=== PATIENT | female | born 1955 | race Caucasian/White ===

== ENCOUNTER → 2017-12-13 15:43 | Outpatient (CLI) | payer BC, SELFPAY | PROVIDERS: Visit Provider Otolaryngology | DX: J32.9 Chronic sinusitis, unspecified (principal) | CPT/HCPCS: 87070; 87077; 87186; 87205 ==

== ENCOUNTER 2018-05-19 15:00 | Outpatient (RCR) | payer BC, SELFPAY | END 2018-05-30 23:59 | LOC: NS 15:00 | PROVIDERS: PCP Family Medicine; Visit Provider Orthopaedic Surgery | DX: E66.9 Obesity, unspecified (principal); Z68.34 Body mass index [BMI] 34.0-34.9, adult; Z71.3 Dietary counseling and surveillance | CPT/HCPCS: 97802; 97803 ==

== ENCOUNTER 2018-06-02 14:25 | Outpatient (RCR) | payer BC, SELFPAY | END 2018-06-02 23:59 | LOC: NS 14:25 | PROVIDERS: PCP Family Medicine; Visit Provider Orthopaedic Surgery | DX: E66.9 Obesity, unspecified (principal); Z68.34 Body mass index [BMI] 34.0-34.9, adult; Z71.3 Dietary counseling and surveillance | CPT/HCPCS: 97803 ==

== ENCOUNTER → 2018-11-06 15:41 | Outpatient (CLI) | payer MEDICARE, SELFPAY | PROVIDERS: Family Provider Family Medicine; PCP Family Medicine; Referring Provider Otolaryngology; Visit Provider Otolaryngology | DX: J32.9 Chronic sinusitis, unspecified (principal) | CPT/HCPCS: 87070; 87077; 87186; 87205 ==

== ENCOUNTER → 2021-02-22 14:49 | Outpatient (CLI) | payer MEDICARE, OTHER, SELFPAY | PROVIDERS: PCP Family Medicine; Referring Provider Otolaryngology; Visit Provider Otolaryngology | DX: J32.8 Other chronic sinusitis (principal) | CPT/HCPCS: 87070; 87077; 87186; 87205 ==

== ENCOUNTER → 2021-05-01 | Outpatient (CLI) | payer MEDICARE, OTHER, SELFPAY | END | disposition home or self-care (01) | LOC: LABSPEC 15:33 | PROVIDERS: PCP Family Medicine; Visit Provider Otolaryngology | DX: J32.8 Other chronic sinusitis (principal) | CPT/HCPCS: 87070; 87077; 87186; 87205 ==

== ENCOUNTER 2023-12-02 10:22 | Outpatient (CLI) | payer MEDICARE, OTHER, SELFPAY ==
[2023-12-02 13:37] LABS: Ferritin 41 ng/mL (8-252); Iron 35 ug/dL (50-170)
== END 2023-12-02 23:59 | disposition home or self-care (01) ==
PROVIDERS: Referring Provider Internal Medicine Pulmonary Disease; Visit Provider Internal Medicine Pulmonary Disease
DX: G25.81 Restless legs syndrome (principal)
CPT/HCPCS: 36415; 82728; 83540

== ENCOUNTER → 2024-03-30 | Outpatient (CLI) | payer MEDICARE, OTHER, SELFPAY ==
[2024-03-30 15:08] LABS: Absolute Lymphocyte Count 0.82 X10^3/uL (0.83-4.51); Absolute Neutrophil Count 12.7 X10^3/uL (2.0-7.7); Basophil# 0.03 X10^3/uL; Basophil% 0.2 % (0-1); Eosinophil# 0.05 X10^3/uL; Eosinophils% 0.3 % (0-5); Hematocrit 28.7 % (37-47); Hemoglobin 8.9 g/dL (12.0-15.0); Lymphocyte # 0.82 X10^3/ul (0.83-4.51); Lymphocyte % 5.6 % (19-41); Mean Platelet Vol. 9.8 fl (6.2-12.0); Monocyte# 1.03 X10^3/uL; NRBC Flagged by Analyzer 0 % (0-5); Neutrophil # 12.72 X10^3/uL (2.7-7.7); Neutrophil % 86.1 % (47-70); Platelet Count 244 K/mm3 (150-450); RBC Distribution Width CV 16.5 % (11.6-14.6); RBC Distribution Width SD 59.7 fl (35.1-43.9); Red Blood Count 2.87 M/mm3 (4.2-5.4); White Blood Count 14.8 K/mm3 (4.4-11.0)
[2024-03-30 15:54] LABS: Hepatitis B Surface Antibody Non-Reactive
[2024-03-30 16:06] LABS: ALB/GLOB Ratio 1.2 RATIO (0.9-2.4); AST(SGOT) 20 U/L (15-37); Alanine Aminotransfer ALT/SGPT 24 U/L (13-56); Albumin, Serum 3.5 g/dL (3.2-5.0); Alkaline Phosphatase 56 U/L (45-117); Anion Gap 9 (5-15); BUN 23 mg/dL (7-18); BUN/Creat Ratio 18.4 RATIO (10-20); Calcium,Total 9.4 mg/dL (8.5-10.1); Chloride 98 mmol/L (98-107); Creatinine, Serum 1.25 mg/dL (0.55-1.02); EST Glomerular Filtration Rate 45 mL/min (>60); Est Glom Filt Rate - Afr Amer 55 mL/min (>60); Globulin 2.9 g/dL (2.2-4.2); Glucose 144 mg/dL (74-106); Protein, Total 6.4 g/dL (6.4-8.2); Sodium Level 134 mmol/L (136-145); T4 Free Direct 1.14 ng/dL (0.76-1.46)
[2024-04-01 15:09] LABS: Anti-Nuclear Antibody Test Negative (.); Cytoplasmic Ab (C-ANCA) <1:20 titer (Neg:<1:20); HEPATITIS B SURFACE AG Negative (Negative); Hep C Antibodies Non Reactive (Non Reactive); Hepatitis A AB, Total Negative (Negative); Hepatitis A IgM Antibody Negative (Negative); Hepatitis B Core AB IgM Negative (Negative); PROEL- A/G Ratio 1.5 (0.7-1.7); PROEL- Albumin 3.5 g/dL (2.9-4.4); PROEL- Alpha-1 Globulin 0.2 g/dL (0.0-0.4); PROEL- Alpha-2 Globulin 0.8 g/dL (0.4-1.0); PROEL- Beta Globulin 0.8 g/dL (0.7-1.3); PROEL- Gamma Globulin 0.4 g/dL (0.4-1.8); PROEL- Globulin, Total 2.3 g/dL (2.2-3.9); PROEL- TOTAL PROTEIN 5.8 g/dL (6.0-8.5); PROEL-M-Spike Not Observed g/dL (Not Observed); Perinuclear Ab (P-ANCA) <1:20 titer (Neg:<1:20)
== END | disposition home or self-care (01) ==
PROVIDERS: Referring Provider Physician Assistant Medical; Visit Provider Physician Assistant Medical
DX: M31.0 Hypersensitivity angiitis (principal)
CPT/HCPCS: 36415; 80053; 80074; 84165; 84439; 84443; 85025; 86038; 86256; 86706; 86708

== ENCOUNTER → 2024-08-06 | Outpatient (CLI) | payer MEDICARE, OTHER, SELFPAY ==
--- NOTE | 2024-08-06 14:53 | RAD_ITS ---
PROCEDURE: CHEST PA AND LATERAL REASON FOR EXAM: Dyspnea. TECHNIQUE: Frontal and lateral views of the chest. COMPARISON: None. FINDINGS: The heart size is normal. The mediastinal contour is unremarkable. The lungs are clear. The bones are unremarkable. RAD/Chest PA and Lateral IMPRESSION: NEGATIVE CHEST Reading Location: [id number]
[2024-08-12 05:06] LABS: Immunoglobulin A 86 mg/dL (87-352); Immunoglobulin E 5 IU/mL (6-495); Immunoglobulin G 600 mg/dL (586-1602); Immunoglobulin M 38 mg/dL (26-217); QNTFERON TB Mitogen Value 1.78 IU/mL (.); QNTFERON TB Nil Value 0 IU/mL (.); QNTFERON TB1+ Ag Value 0 IU/mL (.); QNTFERON TB2+ Ag Value 0 IU/mL (.); QNTIFERON TB Positive Criteria Negative (Negative)
== END | disposition home or self-care (01) ==
LOC: MTLAB 14:52
PROVIDERS: Referring Provider Internal Medicine Pulmonary Disease; Visit Provider Internal Medicine Pulmonary Disease
DX: U07.1 COVID-19 (principal); J44.9 Chronic obstructive pulmonary disease, unspecified; R06.00 Dyspnea, unspecified
CPT/HCPCS: 36415; 71046; 82784; 82785; 86480

== ENCOUNTER → 2024-08-28 | Outpatient (CLI) | payer MEDICARE, OTHER, SELFPAY ==
[2024-08-28 12:55] LABS: Anion Gap 15 (5-15); BUN 36 mg/dL (4-19); Carbon Dioxide 25.1 mmol/L (22.0-29.0); Chloride 96 mmol/L (96-108); Creatinine, Serum 1.91 mg/dL (0.70-1.20); EST Glomerular Filtration Rate 28 (>60); Glucose 300 mg/dL (70-99); Potassium 4.2 mmol/L (3.3-5.1); Pro- Brain NATRIURETIC PEPTIDE 811 pg/mL (<=900); Sodium Level 135 mmol/L (133-145)
== END | disposition home or self-care (01) ==
LOC: LABSPEC 11:46
DX: I13.0 Hypertensive heart and chronic kidney disease with heart failure and stage 1 through stage 4 chronic kidney disease, or unspecified chronic kidney disease (principal); I50.33 Acute on chronic diastolic (congestive) heart failure
CPT/HCPCS: 80048; 83880

== ENCOUNTER → 2024-09-22 | Outpatient (CLI) | payer MEDICARE, OTHER, SELFPAY ==
[2024-09-22 16:21] LABS: Absolute Lymphocyte Count 1.68 X10^3/uL (0.83-4.51); Absolute Neutrophil Count 8.1 X10^3/uL (2.0-7.7); Basophil# 0.02 X10^3/uL; Basophil% 0.2 % (0-1); Eosinophil# 0.18 X10^3/uL; Eosinophils% 1.6 % (0-5); Hematocrit 21.9 % (37-47); Hemoglobin 7.1 g/dL (12.0-15.0); Lymphocyte # 1.68 X10^3/ul (0.83-4.51); Lymphocyte % 14.7 % (19-41); Mean Corp Hgb Conc 32.4 g/dL (32-36); Mean Corpuscular Hgb 29.8 pg (27.0-32.0); Mean Platelet Vol. 9.8 fl (6.2-12.0); Monocyte# 1.28 X10^3/uL; Monocyte% 11.2 % (0-10); NRBC Flagged by Analyzer 0.2 % (0-5); Neutrophil # 8.13 X10^3/uL (2.7-7.7); Platelet Count 272 K/mm3 (150-450); RBC Distribution Width CV 18.5 % (11.6-14.6); RBC Distribution Width SD 60.9 fl (35.1-43.9); Red Blood Count 2.38 M/mm3 (4.2-5.4); White Blood Count 11.4 K/mm3 (4.4-11.0)
[2024-09-23 00:14] LABS: ALB/GLOB Ratio 1.3 RATIO (0.9-2.4); AST(SGOT) 18 U/L (<=31); Alanine Aminotransfer ALT/SGPT 14 U/L (<=34); Albumin, Serum 3.8 g/dL (3.4-4.8); Alkaline Phosphatase 106 U/L (35-104); Anion Gap 15 (5-15); BUN 28 mg/dL (4-19); BUN/Creat Ratio 11.8 RATIO (10-20); Calcium,Total 9.5 mg/dL (7.6-11.0); Carbon Dioxide 21.5 mmol/L (21.0-32.0); Chloride 96 mmol/L (98-108); EST Glomerular Filtration Rate 21 (>60); Globulin 2.8 g/dL (2.2-4.2); Glucose 154 mg/dL (70-99); Potassium 3.8 mmol/L (3.3-5.1); Protein, Total 6.6 g/dL (5.9-8.4); Sodium Level 133 mmol/L (133-145); Total Bilirubin 0.18 mg/dL (0.00-1.30)
== END | disposition home or self-care (01) ==
LOC: LABSPEC 15:01
PROVIDERS: Referring Provider Internal Medicine Infectious Disease; Visit Provider Internal Medicine Infectious Disease
DX: J18.9 Pneumonia, unspecified organism (principal); B96.1 Klebsiella pneumoniae [K. pneumoniae] as the cause of diseases classified elsewhere
CPT/HCPCS: 80053; 85025; 86140

== ENCOUNTER 2024-11-06 13:00 | Outpatient (RCR) | payer MEDICARE, OTHER, SELFPAY ==
--- NOTE | 2024-09-09 10:59 | HP.PTEVAL_ITS ---
Patient's Visit Information Visit Information Visit Information: RONI ACUNA is a 68 year old F referred to Physical Therapy by RAFFAELE BERRIOS with a diagnosis of weakness. Date of Evaluation: 09/09/24 Physical Therapist: Sukumar Soto, DPT, OCS, CSCS Visit Plan Frequency: 3x /Week Duration: 4-6 Weeks Plan: 3x/week for 4-6 weeks for IE HEP: use wh walker 100% of time, reviewed safety, walk with walker with hubby 5x/day 300 feet or so. Please work on LE, postural and general strength in PT to HEP when safe, include steps and sit to stand. Include balance dynamically with weight shifts and vestib challenges. Subjective Subjective: Spent most of May on a vent at for 11 days and then NH for therapy then back to hospital for 10 days. She had pneumonia, Also has CHF. Has kidney failure. Has been home for 2 month or so now. Has been doing very little at home, doctor appointment and relaxing and recovering. Took too long to get i nto PT. Has sinus infection that might need cleaned out. Currently balance is not good adn hard time gtting around with weakness. Uses cane all of the time. Has wh walker but does not like it. Has rollator also but brake is broken. Has WC. One fall 3 weeks ago while bending over. Uses WC if she has to go long way. Has no steps but two to get in , has railing and does not use basement. Sleep in bed in condo and sleeps OK, up some nights with anxiousness. Lives with hubby, not employed. Basic ADLs; dresses self (hubby may help with compression garment. Bathroom self. Shower with hanging around at walk in shower and has shower sat. Hobbies: loves quilting and hang with friends. has not been able to make that monthly meeeting. Gnosticist regularly but not lately due to weeakness and imbalance. Dizzy is intermittent mostly with standing up. Sleeps on wedge. Did not need cane prior to this sickness. Pain neck: Pain Intensity (Out of 10): 0 Pain Intensity Range: 0 Comment: stiff, has rods in neck. Objective Objective: 96% spO2 63 HR at rest slow walking with cane and husbands ar m back to PT intermittent R foot drag and slow and very fatigued relieved to sit once to the room. CGA to Min A with cane. Ambulates with wh walkr mod I then 200 feet with some R foot drag but faster and safer, recommendd wh walkr 100% at home. transfer chair needing UE I, Bd trasnfer HOB elevated I. LE AROM WFL and flexibility WFL. Sensation LE diminished to gross light touch in feet and ankles, some neuropathy eevident. reflexes 2/3 patella and achilles B. strength hips and corer 3/5, knes 4/5, ankles 4-/5. Up steps with rail weak and needing UE due to not strong enough with either leg alone to push up steps. UE AROM to 100 elevation, passive is better, L weaker than R. Balance/Special Test Scores Functional Gait Assessment Score: 12 % Disability: 60.0000 CATSIB Score (Max score 120 seconds): 72 Lower Extremity Functional Score: 11 TUG Test Time Seconds: 19 30 Second Chair Rise Test Seconds: 10 Goals Goal 1:: I appropriate home based strngth posture, LE and balance ex to limit future problems. Goal Time Frame: 4-6 Weeks Goal 2:: 30 SSTS 15 score to improve mobility Goal Time Frame: 4-6 Weeks Goal 3:: up and down steps with one railing I either leg Goal Time Frame: 4-6 Weeks Goal 4:: Pt feel 75% better and able to go out with friends safely Goal Time Frame: 4-6 Weeks Goal 5:: Walk with cane or less in community safely with 23 FGA score. Goal Time Frame: 4-6 Weeks Rehabilitation Potential Physical Therapy Diagnosis: weakness and neeuropathy effecting mobility adn activitiy at home Rehabilitation Potential: Fair Anticipated Interventions Patient/Client Instruction: Educate patient on: Condition and Plan of Care For the Purpose of:: To increase ROM, To improve nutrient delivery to tissue, To improve muscle performance and motor function, To increase tolerance to activity/condition/position, To improve ability of physical actions for home/community/work/leisure, To improve gait and locomotor functions and To improve safety Therapeutic Exercise to Include: Strength training, Balance training and Postural training For the Purpose of:: To improve nutrient delivery to tissue, To improve muscle performance and motor function, To increase tolerance to activity/condition/position, To improve gait and locomotor functions and To improve safety Text: Thank you for the opportunity to evaluate your patient. For Medicare and Medicare HMO plans, please review the plan of care and approve it. It will need to be FAXED BACK to us at [phone] for Medicare purposes. For Medicare only, by signing this I certify the plan of care. Please let me know if there are questions or concerns regarding this plan of care. Physician Signature: Date:
--- NOTE | 2025-01-04 15:19 | HP.PTDCNRP_ITS ---
Patient Information Patient Information: RONI ACUNA was seen in my office for initial evaluation on 09/09/24. The following Plan of Care was established for this patient: POC Established Initial Frequency: 3x /Week Initial Duration: 4-6 Weeks Anticipated Interventions Patient/Client Instruction: Educate patient on: Condition and Plan of Care For the Purpose of:: To increase ROM, To improve nutrient delivery to tissue, To improve muscle performance and motor function, To increase tolerance to activity/condition/position, To improve ability of physical actions for h ome/community/work/leisure, To improve gait and locomotor functions and To improve safety Therapeutic Exercise to Include: Strength training, Balance training and Postural training For the Purpose of:: To improve nutrient delivery to tissue, To improve muscle performance and motor function, To increase tolerance to activity/condition/position, To improve gait and locomotor functions and To improve safety Last Seen Last Seen: This patient was last seen in our office 11/06/24. Pertinent comments regarding their Physical therapy will appear below: Pt seen for POC and was 50% better. Plan was to f/u in a couple weeks to ensure progress but did not schedule or attend. At this point, it has been almost two months and I will discontinue from my care. At this point I will be discontinuing this patient from physical therapy. I would be happy to see this patient again in the future if found appropriate by the physician. Thank you! Sukumar Soto, DPT, OCS, CSCS Balance/Gait/Functional tests Balance/Special Test Scores Functional Gait Assessment Score: 21 % Disability: 30.0000 CATSIB Score (Max score 120 seconds): 72 Lower Extremity Functional Score: 35 TUG Test Time Seconds: 19 Tug Test: <20 sec.=mostly independent 30 Second Chair Rise Test Seconds: 13
== END 2024-11-06 19:00 | disposition home or self-care (01) ==
LOC: PT 13:00
DX: R53.1 Weakness (principal)
CPT/HCPCS: 97110; 97163; 97164; 97530

== ENCOUNTER 2025-01-25 08:54 | Inpatient (IN) | payer MEDICARE, OTHER, SELFPAY ==
[2025-01-25] VITALS (13 sets, daily range): BP systolic 132–156; BP diastolic 32–68; PULSE 55–76; RESP 14–20; TEMP 36.5–37.2; O2SAT 95–100; BMI 34.2; BMI 34.4
--- NOTE | 2025-01-25 09:02 | CT_ITS ---
PROCEDURE: STROKE BRAIN/HEAD WITHOUT CONT 01/25/2025 REASON FOR EXAM: NEURO DEFICIT, ACUTE, STROKE SUSPECTED TECHNIQUE: STROKE BRAIN/HEAD WITHOUT CONT Coronal and Sagittal reconstruction series were provided. One or more dose reduction techniques were used (e.g., Automated exposure control, adjustment of the mA and/or kV according to patient size, use of iterative reconstruction technique. RADIATION DOSE SUMMARY: CTDlvol: 44.99 mGy DLP: 812.98 mGycm COMPARISON: None FINDINGS: Brain: Low density in the periventricular white matter suggests mild chronic small vessel ischemic changes. CSF Spaces: Mild generalized cerebral atrophy Sinuses/Mastoids: Bilateral maxillary sinusitis. Opacification of the ethmoid sinuses. Mucosal thickening of the sphenoid sinus. There is evidence of prior resection of the medial [place] of both maxillary sinuses. Partial opacification of the left frontal sinus Bones: Unremarkable CT/STROKE Brain/Head without Cont IMPRESSION: SINUS DISEASE. OTHERWISE UNREMARKABLE NONCONTRAST HEAD CT. Red Alert: Sinusitis. No acute findings. The critical information above was relayed directly by me by telephone to Reema Grider on 01/25/2025 at 9:15 am with readback verification. Reading Location: [facility]
--- NOTE | 2025-01-25 09:02 | EKG12_ITS ---
Test Reason : NEURO S/SX Blood Pressure : */* mmHG Vent. Rate : 57 BPM Atrial Rate : 57 BPM P-R Int : 174 ms QRS Dur : 74 ms QT Int : 422 ms P-R-T Axes : 51 -3 10 degrees QTcB Int : 410 ms Sinus bradycardia Minimal voltage criteria for LVH, may be normal variant ( R in aVL ) Inferior infarct , age undetermined Cannot rule out Anterior infarct , age undetermined Abnormal ECG Confirmed by CHATO SAUCEDO, KATHERINE ([id number]), editor & co founder JENNIFER PATEL ([id number]) on 01/26/2025 1:00:26 PM Referred By: Confirmed By: KATHERINE REIS MD
--- NOTE | 2025-01-25 09:03 | RAD_ITS ---
PROCEDURE: CHEST 1 VIEW 01/25/2025 REASON FOR EXAM: NEURO DEFICIT, ACUTE, STROKE SUSPECTED TECHNIQUE: Frontal view of the chest. COMPARISON: 08/06/2024 FINDINGS: Hardware: EKG leads overlie the chest Heart: The heart size is normal. Lungs: Chronic interstitial changes in both lung mullen without a superimposed acute pulmonary process. Bones: Degenerative bony changes, evidence of previous bilateral rotator cuff repair Other: Peripheral calcifications in the thoracic aorta without aneurysm. RAD/Chest 1 View IMPRESSION: No acute pulmonary process, no interval change Reading Location: [id number]
--- NOTE | 2025-01-25 09:20 | EDS_ITS ---
HPI History of Present Illness Chief Complaint: Stroke Alert Informant: patient, family and EMS Narrative Narrative: Patient is a 69-year-old female with history of hypertension, diabetes mellitus (insulin-dependent), fibromyalgia and CKD (is under evaluation for possibly starting hemodialysis) presenting for episode of slurred speech. Patient states she woke up at 5 AM and her woke up around 7 AM. At that time she seemed normal. Around 730 she was eating breakfast when she started to have slurred speech. She was very weak. EMS was called. She had slurred speech for them and was complained of intermittent headache and lightheadedness. Her blood sugar for squad was 214. She just started a new insulin and a new Dexcom. Her states her blood sugars never been this high. She did have a fall 2 weeks ago but has been recovering from that. She was recently placed on a course of Lasix for leg swelling and has had increased urine output associated with that. No report of fever or GI symptoms. Patient currently denies feeling lightheaded or having a headache. Per EMS upon arrival her has improved significantly compared to how it was prior to arrival. Patient tells me her hands hurt and that is her only complaint. [facility] Medical History Diabetes Home Medications ?Medication ?Instructions ?Recorded ?Last Taken ?Type amlodipine 10 mg tablet 10 mg PO DAILY 05/28/1412/30 History pramipexole 0.25 mg tablet 0.25 mg PO BID 05/28/14 History prednisone 5 mg tablet 5 mg PO DAILY 05/28/1401/25 History pregabalin 100 mg capsule (Lyrica) 100 mg PO QHS 05/2801/24/25 History aspirin 81 mg chewable tablet 81 mg PO DAILY@0800 05/0201/25/25 History calcium 500 mg-vitamin D3 1,000 500 mg PO DAILY 01/25/25 History unit-vitamin K 40 mcg chewable tablet (Citracal-D3 Soft Chew) ergocalciferol (vitamin D2) 1,250 5,000 unit PO BID 01/25/25 History mcg (50,000 unit) capsule (Vitamin
--- NOTE | 2025-01-25 09:20 | EX.ED.DYSGE1 ---
HPI History of Present Illness Chief Complaint: Stroke Alert Informant: patient, family and EMS Narrative Narrative: Patient is a 69-year-old female with history of hypertension, diabetes mellitus (insulin-dependent), fibromyalgia and CKD (is under evaluation for possibly starting hemodialysis) presenting for episode of slurred speech. Patient states she woke up at 5 AM and her woke up around 7 AM. At that time she seemed normal. Around 730 she was eating breakfast when she started to have slurred speech. She was very weak. EMS was called. She had slurred speech for them and was complained of intermittent headache and lightheadedness. Her blood sugar for squad was 214. She just started a new insulin and a new Dexcom. Her states her blood sugars never been this high. She did have a fall 2 weeks ago but has been recovering from that. She was recently placed on a course of Lasix for leg swelling and has had increased urine output associated with that. No report of fever or GI symptoms. Patient currently denies feeling lightheaded or having a headache. Per EMS upon arrival her has improved significantly compared to how it was prior to arrival. Patient tells me her hands hurt and that is her only complaint. [facility] Medical History Diabetes Home Medications ?Medication ?Instructions ?Recorded ?Last Taken ?Type amlodipine 10 mg tablet 10 mg PO DAILY 05/28/14 01/24/25 History pramipexole 0.25 mg tablet 0.25 mg PO BID 05/28/14 01/24/25 History prednisone 5 mg tablet 5 mg PO DAILY 05/28/14 01/25/25 History pregabalin 100 mg capsule (Lyrica) 100 mg PO QHS 05/28/14 01/24/25 History aspirin 81 mg chewable tablet 81 mg PO DAILY@0800 05/29/14 01/25/25 History calcium 500 mg-vitamin D3 1,000 500 mg PO DAILY 05/29/14 01/25/25 History unit-vitamin K 40 mcg chewable tablet (Citracal-D3 Soft Chew) ergocalciferol (vitamin D2) 1,250 5,000 unit PO BID 05/29/14 01/25/25 History mcg (50,000 unit) capsule (Vitamin D2) ferrous gluconate 324 mg (37.5 mg 324 mg PO BID 05/29/14 01/25/25 History iron) tablet omega-3 fatty acids-fish oil 340 1 ea PO TID 05/29/14 Unknown History mg-1,000 mg capsule (Fish Oil) allopurinol 100 mg tablet 200 mg PO DAILY 01/25/25 01/24/25 History ascorbic acid (vitamin C) 1,000 mg 1 g PO DAILY 01/25/25 01/25/25 History capsule biotin 10,000 mcg capsule 10,000 mcg PO DAILY 01/25/25 01/25/25 History brimonidine 0.2 % eye drops 1 drp EACH EYE BID 01/25/25 01/25/25 History carvedilol 12.5 mg tablet 12.5 mg PO Q12H 01/25/25 01/25/25 History cetirizine 10 mg tablet 10 mg PO DAILY 01/25/25 01/25/25 History cyanocobalamin (vitamin B-12) 1,000 mcg PO DAILY 01/25/25 01/25/25 History 1,000 mcg capsule dapagliflozin propanediol 10 mg 10 mg PO DAILY 01/25/25 01/25/25 History tablet (Farxiga) dicyclomine 20 mg tablet 20 mg PO Q6H 01/25/25 01/25/25 History ezetimibe 10 mg tablet 10 mg PO DAILY 01/25/25 01/25/25 History folic acid 1 mg tablet 1 mg PO DAILY 01/25/25 01/25/25 History furosemide 20 mg tablet 20 mg PO BID 01/25/25 01/25/25 History hydralazine 100 mg tablet 100 mg PO TID 01/25/25 01/25/25 History hydroxychloroquine 200 mg tablet 200 mg PO BID 01/25/25 01/25/25 History insulin degludec 100 unit/mL (3 15 unit subcut QHS 01/25/25 01/24/25 History mL) subcutaneous pen (Tresiba FlexTouch U-100 insulin) isosorbide mononitrate 120 mg 120 mg PO DAILY 01/25/25 01/25/25 History tablet,extended release 24 hr latanoprost 0.005 % eye drops 1 drp ophthalmic (eye) QHS 01/25/25 01/24/25 History magnesium 250 mg tablet 250 mg PO DAILY 01/25/25 01/25/25 History multivitamin (Daily Value tablet) 1 tab PO DAILY 01/25/25 01/25/25 History omega-3 acid ethyl esters 1 gram 2 cap PO BID 01/25/25 01/25/25 History capsule pantoprazole 40 mg tablet,delayed 40 mg PO BID 01/25/25 01/25/25 History release potassium 99 mg tablet 99 mg PO DAILY 01/25/25 01/25/25 History prednisone 2.5 mg tablet 2.5 mg PO DAILY 01/25/25 01/25/25 History semaglutide 0.25 mg or 0.5 mg (2 0.25 mg subcut QWEEK 01/25/25 01/24/25 History mg/3 mL) subcutaneous pen injector (Ozempic) valsartan 160 mg tablet 320 mg PO DAILY 01/25/25 01/24/25 History Allergy/AdvReac Type Severity Reaction Status Date / Time Penicillins Allergy Hives Verified 01/25/25 09:00 Social History Smoking Status: Never smoker ROS ROS ED Constitutional Constitutional ED: Denies chills, fever(s) or sweats Eyes Eyes: Denies blurry vision or change in vision Cardiovascular Cardiovascular: Denies chest pain Respiratory/Chest Respiratory/Chest: Denies cough or dyspnea Gastrointestinal Gastrointestinal: Denies nausea or vomiting Musculoskeletal Musculoskeletal: Reports myalgias; Denies arthralgias Integumentary Denies rash Neurologic Neurologic: Reports headache(s); Denies paresthesias Hematologic/Lymphatic Hematologic/Lymphatic: Denies easy bleeding or easy bruising EXAM Physical Exam Const Vital Signs: 01/25/25 09:01 01/25/25 09:03 01/25/25 09:03 Temperature 98.7 F 98.9 F Temperature Source Temporal Oral Pulse Rate 55 L 60 Respiratory Rate 16 14 Blood Pressure 136/52 H 147/53 H Blood Pressure Mean 80 84 Pulse Ox 97 96 Oxygen Delivery Method Room Air Room Air Room Air 01/25/25 09:30 01/25/25 10:00 01/25/25 10:30 Temperature Temperature Source Pulse Rate 61 68 62 Respiratory Rate 14 18 18 Blood Pressure 141/59 H 156/68 H 141/52 H Blood Pressure Mean 86 97 81 Pulse Ox 100 100 100 Oxygen Delivery Method Room Air Room Air Room Air 01/25/25 11:00 01/25/25 11:12 Temperature 98.6 F Temperature Source Pulse Rate 64 64 Respiratory Rate 20 H 20 H Blood Pressure 155/65 H 155/65 H Blood Pressure Mean 95 95 Pulse Ox 100 100 Oxygen Delivery Method Room Air Positive well nourished and well developed General Appearance ED: well developed and NAD HEENT Reports moist mucous membranes Eyes PERRL and EOMs intact bilaterally Eyes Narrative: No visual field cut Neck supple and no JVD Chest Wall inspection of chest normal and palpation of chest normal Resp normal respiratory effort and clear to auscultation bilaterally Cardio regular rate, regular rhythm and no murmurs Cardio Narrative: 2+ radial and DP pulses present GI normal to inspection, nondistended, normoactive bowel sounds and non-tender Extremity normal to inspection General Extremety ED: Negative for edema General Extremity: Negative for edema Neuro oriented x3, CN's II-XII intact bilaterally and no sensory deficits noted Neuro Narrative: Generally weak but answers questions appropriately. Mildly somnolent but with verbal stimuli awakes and answers questions appropriately. NIH equals 0. Speech is weak but is not having dysarthria or expressive aphasia. Sensorium / Orientation: alert Sensory Exam: No sensory level loss detected Motor Exam: strength 5/5 throughout and general weakness Psych mental status grossly normal Skin no rashes or lesions noted and no wounds Skin Narrative: Healing area of ecchymosis over the left anterior neck. No hematoma appreciated. MDM MDM MDM Narrative Medical decision making narrative: Patient arrives to the emergency room as a prehospital stroke alert. Upon arrival patient is weak but does not have any focal neurologic deficits. Stroke alert was canceled but CT of the brain is obtained she did report headache with an acute change in mental status and concern for acute intracranial hemorrhage such as subarachnoid hemorrhage or subdural (she did have a fall about 2 weeks ago per family report). Differential includes metabolic encephalopathy, medication reaction, TIA, urinary tract infection, pneumonia, arrhythmia, ACS and electrolyte derangement. 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 At that time patient had anemia the hemoglobin of 9.3. Normal white blood cell count of 8.2. Renal function panel showed BUN of 54 and a creatinine of 3.10 with a sodium of 128 and chloride of 89 as well as a phosphorus of 5.1. Fasting glucose 121. Magnesium 2.3. CT of the brain does not show any acute intracranial process. There is sinus disease present. CBC shows a leukocytosis of 11.1. Hemoglobin 9.4. She does have a left shift with 1% immature granulocytes. troponin mildly elevated at 53 high-sensitivity BMP shows sodium of 130, elevated gap of 16, BUN of 65 and creatinine 3.65. Patient's kidney function is worsening. She has no progressive neurologic symptoms in the emergency room. Concerned this is more of an underlying metabolic process on top of worsening of chronic kidney disease. Patient started on IV fluids at 150 cc an hour. Will contact hospitalist for admission. Urinalysis is still pending. Urinalysis consistent with urinary tract infection with positive nitrates, 500 leukocyte esterase, greater than 100 white blood cells and 1+ bacteria. Culture sent. This was obtained via straight cath. Is started on Rocephin in the emergency room. Case discussed with hospitalist, Dr. Silvestre for admission. Patient and family agreeable with plan of care. History & Record Review Additional record(s) reviewed:: Prior outpatient record Lab Data Attestation: I reviewed the patient's lab results. Labs: Laboratory Results - last 24 hr 01/25/25 01/25/25 01/25/25 08:40 10:14 10:22 WBC 11.1 H RBC 3.08 L Hgb 9.4 L Hct 29.0 L MCV 94.2 MCH 30.5 MCHC 32.4 RDW Std Deviation 51.1 H RDW Coeff of Vilma 14.8 H Plt Count 224 MPV 9.4 Immature Gran % (Auto) 1.000 H Neut % (Auto) 80.3 H Lymph % (Auto) 7.7 L [place] % (Auto) 7.7 Eos % (Auto) 2.8 Baso % (Auto) 0.5 Absolute Neuts (auto) 8.9 H Absolute Lymphs (auto) 0.85 Nucleated RBC % 0 PT Cancelled 13.3 INR Cancelled 1.0 APTT Cancelled 25.7 Sodium 130 L Potassium 4.2 Chloride 88 L Carbon Dioxide 25.6 Anion Gap 16 H BUN 65 H Creatinine 3.65 H Estim Creat Clear Calc 15.26 L Est GFR (MDRD) Non-Af 13 L BUN/Creatinine Ratio 17.7 Glucose 208 H Calcium 11.0 Troponin T High Sens 53 H Urine Color Yellow Urine Clarity Cloudy Urine pH 6.0 Ur Specific [place] 1.015 Urine Protein 30 H Urine Glucose (UA) 250 H Urine Ketones Negative Urine Occult Blood 10 H Urine Nitrite Positive H Urine Bilirubin Negative Urine Urobilinogen Normal Ur Leukocyte Esterase 500 H Urine RBC 0 SEEN Urine WBC >100 SEEN Ur Squamous Epith Cells 0 SEEN Urine Bacteria 1+ Urine Mucus 0 SEEN Radiography Diagnostic Testing: Clinical Impression(s) from Imaging Studies Brain CT 01/25/25 09:02 IMPRESSION: SINUS DISEASE. OTHERWISE UNREMARKABLE NONCONTRAST HEAD CT. Red Alert: Sinusitis. No acute findings. The critical information above was relayed directly by me by telephone to Reema Dover on 01/25/2025 at 9:15 am with readback verification. Reading Location: [id number] Chest X-Ray 01/25/25 09:03 IMPRESSION: No acute pulmonary process, no interval change Reading Location: [id number] Rhythm Strip Rhythm Strip: Sinus Rhythm Rate: 57 Ectopy: None EKG Initial EKG: Attestation: I personally reviewed and interpreted this EKG as follows: Interpretation: Sinus Bradycardia Comments: Sinus bradycardia at a rate of 57 bpm Left axis deviation Minimal voltage criteria for LVH Normal ST segments Management Discussion w/another healthcare provider: Radiologist (CT of the brain does not show any acute intracranial process.) Discharge Plan Triage Chief Complaint: Stroke Alert ED Provider: Reema Dover Dx/Rx/DC Orders Clinical Impression: Acute UTI, Diabetes type 2, uncontrolled, Slurring of speech, Acute kidney injury superimposed on chronic kidney disease, Generalized weakness, Hyponatremia Prescriptions: No Action prednisone 5 MG tablet 5 mg PO DAILY Patient Comments: Rheumatoid arthritis Rx Instructions: TAKE WITH 2.5MG FOR TOTAL DAILY DOSE OF 7.5MG amlodipine 10 MG tablet 10 mg PO DAILY Patient Comments: Blood pressure pramipexole 0.25 MG tablet 0.25 mg PO BID Patient Comments: Restless legs pregabalin [Lyrica] 100 MG capsule 100 mg PO QHS Patient Comments: Neuropathy aspirin 81 MG tablet,chewable 81 mg PO DAILY@0800 Patient Comments: Heart health ergocalciferol (vitamin D2) [Vitamin D2] 50,000 UNIT capsule 5,000 unit PO BID Patient Comments: Supplement omega-3 fatty acids-fish oil [Fish Oil] 1 EACH capsule 1 ea PO TID Patient Comments: Heart health ferrous gluconate 325 MG tablet 324 mg PO BID Patient Comments: Iron supplement calcium-vitamin D3-vitamin K [Citracal-D3 Soft Chew] 1 EACH tablet,chewable 500 mg PO DAILY allopurinol 100 mg tablet 200 mg PO DAILY ascorbic acid (vitamin C) 1,000 mg capsule 1 g PO DAILY biotin 10,000 mcg capsule 10,000 mcg PO DAILY brimonidine 0.2 % drops 1 drp EACH EYE BID Rx Instructions: administer approximately 8 hours apart carvedilol 12.5 mg tablet 12.5 mg PO Q12H cetirizine 10 mg tablet 10 mg PO DAILY cyanocobalamin (vitamin B-12) 1,000 mcg capsule 1,000 mcg PO DAILY dicyclomine 20 mg tablet 20 mg PO Q6H ezetimibe 10 mg tablet 10 mg PO DAILY dapagliflozin propanediol [Farxiga] 10 mg tablet 10 mg PO DAILY isosorbide mononitrate 120 mg tablet extended release 24 hr 120 mg PO DAILY hydralazine 100 mg tablet 100 mg PO TID folic acid 1 mg tablet 1 mg PO DAILY latanoprost 0.005 % drops 1 drp ophthalmic (eye) QHS magnesium 250 mg tablet 250 mg PO DAILY multivitamin [Daily Value] Tablet 1 tab PO DAILY Ozempic 0.25 mg or 0.5 mg (2 mg/3 mL) pen injector 0.25 mg subcut QWEEK Rx Instructions: for 4 weeks potassium 99 mg tablet 99 mg PO DAILY prednisone 2.5 mg tablet 2.5 mg PO DAILY Rx Instructions: TAKE WITH 5MG FOR TOTAL DAILY DOSE OF 7.5MG pantoprazole 40 mg tablet,delayed release (DR/EC) 40 mg PO BID furosemide 20 mg tablet 20 mg PO BID hydroxychloroquine 200 mg tablet 200 mg PO BID valsartan 160 mg tablet 320 mg PO DAILY omega-3 acid ethyl esters 1 gram capsule 2 cap PO BID insulin degludec [Tresiba FlexTouch U-100] 100 unit/mL (3 mL) insulin pen 15 unit subcut QHS Primary Care Provider: JEFFY ROTHMAN Referrals: Care Physician,No Primary [Non-Staff] - Print Language: [place] Disposition Disposition: Acute Care Hospital [facility]
[2025-01-25 09:22] LABS: Hematocrit 29.0 % (37-47); Hemoglobin 9.4 g/dL (12.0-15.0); Immature Granulocytes Count 0.110 X10^3/uL (0.0-0.0); Mean Corp Hgb Conc 32.4 g/dL (32-36); Mean Corpuscular Volume 94.2 fL (81-99); Mean Platelet Vol. 9.4 fl (6.2-12.0); NRBC Flagged by Analyzer 0 % (0-5); Platelet Count 224 K/mm3 (150-450); RBC Distribution Width CV 14.8 % (11.6-14.6); RBC Distribution Width SD 51.1 fl (35.1-43.9); Red Blood Count 3.08 M/mm3 (4.2-5.4); White Blood Count 11.1 K/mm3 (4.4-11.0)
[2025-01-25 09:52] LABS: Anion Gap 16 (5-15); BUN 65 mg/dL (4-19); BUN/Creat Ratio 17.7 RATIO (10-20); Calcium,Total 11.0 mg/dL (7.6-11.0); Carbon Dioxide 25.6 mmol/L (21.0-32.0); Chloride 88 mmol/L (98-108); Estimated Creatinine Clearance 15.26 ml/min (50-250); Glucose 208 mg/dL (70-99); Potassium 4.2 mmol/L (3.3-5.1); Troponin T High Sensitivity 53 ng/L (<=14)
[2025-01-25] MEDS: 0.9% Normal Saline (1000mL) 1,000 ML 150 ML IV (10:27)
[2025-01-25 10:39] LABS: Mucous, Urine 0 SEEN /hpf (<or=2+); Red Blood Cells-Urine 0 SEEN /hpf (0-5); Squamous Epithelial Cells - UA 0 SEEN /hpf (5-10)
[2025-01-25 10:40] LABS: Prothrombin Time (Protime)PT. 13.3 SECONDS (11.7-14.9)
[2025-01-25 10:41] LABS: Partial Thromboplast Time 25.7 Seconds (24.1-36.2)
[2025-01-25 10:42] LABS: Color, Urine Yellow (Yellow); Glucose, Dipstick 250 mg/dl (Normal); Ketone-Dipstick Negative (Negative); Leukocyte Esterase-Dipstick 500 /ul (Negative); Nitrite-Dipstick Positive (Negative); Occult Blood-Urine 10 /ul (Negative); Protein-Dipstick 30 mg/dl (Negative); Specific Gravity, Urine 1.015 (1.002-1.030); Urine Bilirubin Dipstick Negative (Negative)
--- NOTE | 2025-01-25 10:50 | PCM.HP.STD ---
HPI - General General Date of Admission: 01/25/25 Date of Service: 01/25/25 Chief Complaint: slurred speech HPI Narrative RONI ACUNA, is a 69 F with a PMH as outlined who presents via the ED on 01/25/2025 with a complaint of slurred speech. Her last known well was around 7:30am on the day of admission when she was eating breakfast and started having slurrring of her speech. She also felt very weak and also complained of intermittednt headache and lightheadedness. She therefore called the EMS and was brought in to the ED. She denied any focal weakness, numbness or tingling, or any mouth droop. REview of systems is otherwise negative. Vitals in the ED were blood pressure of 141/52, pulse rate of 62 and respiratory rate of 18. Oxygen saturation was 100% on room air. CBC showed hemoglobin of 9.4 and WBC of 11.1 as well as platelets of 224. INR was 1. Chemistry showed sodium of 130 with potassium of 4.2 and bicarb of 25.6. Creatinine was 3.65. Urinalysis showed more than 100 WBC and elevated leukocyte esterase as well as positive nitrites and urine bacteria was 1+. CT of the brain showed no acute intracranial pathology. Stroke alert was called but was canceled when she arrived in the ED by the ED doctor as she felt it was more likely due to the UTI. She is being admitted to be managed for debility and weakness due to UTI as well as a stroke rule out. [facility]LY [facility] Medical History Diabetes Home Medications ?Medication ?Instructions ?Recorded ?Last Taken ?Type amlodipine 10 mg tablet 10 mg PO DAILY 05/28/14 01/24/25 History pramipexole 0.25 mg tablet 0.25 mg PO BID 05/28/14 01/24/25 History prednisone 5 mg tablet 5 mg PO DAILY 05/28/14 01/25/25 History pregabalin 100 mg capsule (Lyrica) 100 mg PO QHS 05/28/14 01/24/25 History aspirin 81 mg chewable tablet 81 mg PO DAILY@0800 05/29/14 01/25/25 History calcium 500 mg-vitamin D3 1,000 500 mg PO DAILY 05/29/14 01/25/25 History unit-vitamin K 40 mcg chewable tablet (Citracal-D3 Soft Chew) ergocalciferol (vitamin D2) 1,250 5,000 unit PO BID 05/29/14 01/25/25 History mcg (50,000 unit) capsule (Vitamin D2) ferrous gluconate 324 mg (37.5 mg 324 mg PO BID 05/29/14 01/25/25 History iron) tablet omega-3 fatty acids-fish oil 340 1 ea PO TID 05/29/14 Unknown History mg-1,000 mg capsule (Fish Oil) allopurinol 100 mg tablet 200 mg PO DAILY 01/25/25 01/24/25 History ascorbic acid (vitamin C) 1,000 mg 1 g PO DAILY 01/25/25 01/25/25 History capsule biotin 10,000 mcg capsule 10,000 mcg PO DAILY 01/25/25 01/25/25 History brimonidine 0.2 % eye drops 1 drp EACH EYE BID 01/25/25 01/25/25 History carvedilol 12.5 mg tablet 12.5 mg PO Q12H 01/25/25 01/25/25 History cetirizine 10 mg tablet 10 mg PO DAILY 01/25/25 01/25/25 History cyanocobalamin (vitamin B-12) 1,000 mcg PO DAILY 01/25/25 01/25/25 History 1,000 mcg capsule dapagliflozin propanediol 10 mg 10 mg PO DAILY 01/25/25 01/25/25 History tablet (Farxiga) dicyclomine 20 mg tablet 20 mg PO Q6H 01/25/25 01/25/25 History ezetimibe 10 mg tablet 10 mg PO DAILY 01/25/25 01/25/25 History folic acid 1 mg tablet 1 mg PO DAILY 01/25/25 01/25/25 History furosemide 20 mg tablet 20 mg PO BID 01/25/25 01/25/25 History hydralazine 100 mg tablet 100 mg PO TID 01/25/25 01/25/25 History hydroxychloroquine 200 mg tablet 200 mg PO BID 01/25/25 01/25/25 History insulin degludec 100 unit/mL (3 15 unit subcut QHS 01/25/25 01/24/25 History mL) subcutaneous pen (Tresiba FlexTouch U-100 insulin) isosorbide mononitrate 120 mg 120 mg PO DAILY 01/25/25 01/25/25 History tablet,extended release 24 hr latanoprost 0.005 % eye drops 1 drp ophthalmic (eye) QHS 01/25/25 01/24/25 History magnesium 250 mg tablet 250 mg PO DAILY 01/25/25 01/25/25 History multivitamin (Daily Value tablet) 1 tab PO DAILY 01/25/25 01/25/25 History omega-3 acid ethyl esters 1 gram 2 cap PO BID 01/25/25 01/25/25 History capsule pantoprazole 40 mg tablet,delayed 40 mg PO BID 01/25/25 01/25/25 History release potassium 99 mg tablet 99 mg PO DAILY 01/25/25 01/25/25 History prednisone 2.5 mg tablet 2.5 mg PO DAILY 01/25/25 01/25/25 History semaglutide 0.25 mg or 0.5 mg (2 0.25 mg subcut QWEEK 01/25/25 01/24/25 History mg/3 mL) subcutaneous pen injector (Ozempic) valsartan 160 mg tablet 320 mg PO DAILY 01/25/25 01/24/25 History Allergy/AdvReac Type Severity Reaction Status Date / Time Penicillins Allergy Hives Verified 01/25/25 09:00 Social History Smoking Status: Former smoker ROS Constitutional Constitutional: Reports fatigue, malaise and weakness; Denies anorexia, chills or fever(s) Eyes Eyes: Denies change in vision ENT HEENT: Denies dysphagia, headache(s) or sore throat Cardiovascular Cardiovascular: Denies chest pain, dyspnea on exertion, edema, lightheadedness, orthopnea, palpitations, paroxysmal nocturnal dyspnea, rapid heart rate or syncope Respiratory/Chest Respiratory/Chest: Denies cough, dyspnea or shortness of breath at rest Gastrointestinal Gastrointestinal: Denies abdominal pain, coffee ground emesis, constipation, diarrhea, dyspepsia, nausea or vomiting Genitourinary Genitourinary: Denies dysuria Neurologic Neurologic: Denies confusion, dizziness, focal weakness, headache(s) or numbness Psychiatric Psychiatric: Denies anxiety Vital Signs Vital Signs Vital Signs: 01/25/25 09:01 01/25/25 09:03 01/25/25 09:03 Temperature 98.7 F 98.9 F Temperature Source Temporal Oral Pulse Rate 55 L 60 Respiratory Rate 16 14 Blood Pressure 136/52 H 147/53 H Blood Pressure Mean 80 84 Pulse Ox 97 96 Oxygen Delivery Method Room Air Room Air Room Air 01/25/25 09:30 01/25/25 10:00 01/25/25 10:30 Temperature Temperature Source Pulse Rate 61 68 62 Respiratory Rate 14 18 18 Blood Pressure 141/59 H 156/68 H 141/52 H Blood Pressure Mean 86 97 81 Pulse Ox 100 100 100 Oxygen Delivery Method Room Air Room Air Room Air Weight Weight: 192 lb 14.472 oz Body Mass Index (BMI) 34.2 Physical Exam Const Constitutional Narrative: lethargic, class II obesity. Able to wake up and answer questions but still weak. General Appearance: cooperative Orientation / Consciousness: lethargic HEENT normocephalic, head/scalp atraumatic, hearing grossly normal bilaterally and moist oral mucous membranes Mouth: oral and palatal mucosa normal Eyes PERRL, EOMs intact bilaterally and conjunctivae normal Neck no lymphadenopathy, supple and no JVD Resp normal respiratory effort, no retractions, no use of accessory muscles and clear to auscultation bilaterally Cardio regular rate, regular rhythm, S1 normal heart sound, S2 normal heart sound and no murmurs GI normal to inspection, nondistended, normoactive bowel sounds, soft to palpation, non-tender and non-distended Extremity normal to inspection, full ROM and no clubbing, cyanosis or edema Neuro oriented x3, CN's II-XII intact bilaterally, moves all extremities and no focal motor deficits Neuro Narrative: lethargic Psych Psych Narrative: flat affect Results Lab / Micro Data 01/25/25 08:40 01/25/25 08:40 Labs: Laboratory Results - last 24 hr 01/25/25 08:40: WBC 11.1 H, RBC 3.08 L, Hgb 9.4 L, Hct 29.0 L, MCV 94.2, MCH 30.5, MCHC 32.4, RDW Std Deviation 51.1 H, RDW Coeff of Vilma 14.8 H, Plt Count 224, MPV 9.4, Immature Gran % (Auto) 1.000 H, Neut % (Auto) 80.3 H, Lymph % (Auto) 7.7 L, [place] % (Auto) 7.7, Eos % (Auto) 2.8, Baso % (Auto) 0.5, Absolute Neuts (auto) 8.9 H, Absolute Lymphs (auto) 0.85, Nucleated RBC % 0, PT Cancelled, INR Cancelled, APTT Cancelled, Sodium 130 L, Potassium 4.2, Chloride 88 L, Carbon Dioxide 25.6, Anion Gap 16 H, BUN 65 H, Creatinine 3.65 H, Estim Creat Clear Calc 15.26 L, Est GFR (MDRD) Non-Af 13 L, BUN/Creatinine Ratio 17.7, Glucose 208 H, Calcium 11.0, Troponin T High Sens 53 H 01/25/25 10:14: PT 13.3, INR 1.0, APTT 25.7 01/25/25 10:22: Urine Color Yellow, Urine Clarity Cloudy, Urine pH 6.0, Ur Specific [place] 1.015, Urine Protein 30 H, Urine Glucose (UA) 250 H, Urine Ketones Negative, Urine Occult Blood 10 H, Urine Nitrite Positive H, Urine Bilirubin Negative, Urine Urobilinogen Normal, Ur Leukocyte Esterase 500 H Rhythm Strip Rhythm Strip: Sinus Rhythm Rate: 57 Ectopy: None Imaging Radiology Impression Brain CT 01/25/25 09:02 IMPRESSION: SINUS DISEASE. OTHERWISE UNREMARKABLE NONCONTRAST HEAD CT. Red Alert: Sinusitis. No acute findings. The critical information above was relayed directly by me by telephone to Reema Dover on 01/25/2025 at 9:15 am with readback verification. Reading Location: [facility] Chest X-Ray 01/25/25 09:03 IMPRESSION: No acute pulmonary process, no interval change Reading Location: [facility] Assessment & Plan Assessment/Plan (1) Hyponatremia: (2) Generalized weakness: (3) Acute kidney injury superimposed on chronic kidney disease: (4) Slurring of speech: (5) Acute UTI: PLAN: Plan # Stroke like symptoms. She was admitted with a complaint of slurred speech. She also felt very weak and frail. Stroke alert was initially called. However in the ED after she had a CT of the brain which was negative was thought that her symptoms were likely more due to her UTI so she did not have any further stroke workup. Patient still lethargic and quite weak. I do think it is reasonable that stroke is ruled out. Will therefore admit under stroke protocol. Monitor NIH stroke scale. Get MRI of the brain. Unable to do CTA of the head and neck due to her RICHARD on CKD Carotid ultrasound ordered which showed bilateral carotid stenosis of more than 70%. Will therefore consult vascular surgery. Started on aspirin and high intensity statin. Consult neurology once MRI results. PT OT consult. Fall precautions. #RICHARD on CKD: Creatinine is 3.65 with a baseline creatinine of around 1.9. May likely be prerenal in light of her decreased intake and nausea. Hydrate with IV fluids and trend creatinine. Hold all nephrotoxic medications. If creatinine does not improve will consult nephrology and do further workup. #Bilateral carotid stenosis Showed bilateral more than 80% stenosis. Already on aspirin and ezetimibe Consult vascular surgery. #UTI: Urinalysis showed evidence of UTI. Started on IV ceftriaxone. Urine cultures ordered. #Hyponatremia: Sodium is 130. May be due to dehydration. Hydrate with IV fluids gently and trend sodium. #History of restless leg syndrome: Stable. On pramipexole #Hyper lipidemia: On ezetimibe #History of fibromyalgia: On Lyrica #Hypertension: Hold carvedilol and other BP meds to allow for permissive hypertension in case of a stroke. IV labetalol as needed per stroke protocol #Type 2 diabetes mellitus: Insulin sliding scale. Hold Farxiga. On Lantus 15 units nightly. Insulin sliding scale. Accu-Cheks ACHS. #GERD: On PPI #History of rheumatoid arthritis: Prednisone DVT prophylaxis: heparin CODE STATUS: Full code Patient counseled extensively about different types of CODE STATUS including full code, DNR CCA and DNR CCA. Patient elects to be full code. Total [id number] time 16 minutes. Charges/Coding Visit Charges Inpatient E&M: 55537 Init Hosp L3 Procedures Hospitalists Procedures: 45808 Advncd Care Plan 30 Min
[2025-01-25 11:53] LABS: Troponin T High Sens 2 HR 50 ng/L (<=14)
--- NOTE | 2025-01-25 12:36 | ECHOCS_ITS ---
Reason For Study Reason For Study: TIA/CVA Procedure This was a 2D Doppler, Color Flow transthoracic echocardiogram. The study was technically difficult. Contrast injection was performed. Exam performed portable in patient room. Left Ventricle Normal LV size. Left ventricular systolic function is normal. The left ventricular ejection fraction is 60 %. Stage 1 diastolic dysfunction. No regional wall motion abnormalities noted. Right Ventricle Normal RV size. Normal systolic function. Atria The left atrium is moderately enlarged. Normal right atrium. Mitral Valve There is moderate mitral annular calcification. Tricuspid Valve Normal tricuspid valve. Mild (1+) tricuspid valve insufficiency. Pulmonary artery systolic pressure is 40 mmHg. Aortic Valve Trisinus/trileaflet aortic valve. Pulmonic Valve Normal pulmonic valve. Great Vessels Normal aortic root. The pulmonary artery is normal size. Pericardium/Pleural No pericardial effusion. Medication Diluted definity 2ml given slow IV push to enhance endocardial definition. MMode/2D Measurements & Calculations LVIDd: 5.4 cm IVSd: 0.86 cm Ao root diam: 3.0 cm LVIDs: 3.5 cm LVPWd: 0.72 cm RVDd: 4.3 cm FS: 34.9 % LAV(MOD-bp): 80.5 ml LVAd ap4: 37.6 cm2 SV(MOD-sp4): 79.0 ml LAV(MOD-bp) Indexed: 42.2 ml/m2 LVLd ap4: 8.4 cm SI(MOD-sp4): 41.4 ml/m2 LAV(MOD-sp2): 67.6 ml EDV(MOD-sp4): 134.1 ml LAV(MOD-sp4): 83.8 ml EDV(sp4-el): 143.3 ml LVAs ap4: 21.7 cm2 LVLs ap4: 7.1 cm ESV(MOD-sp4): 55.1 ml ESV(sp4-el): 56.1 ml EF(MOD-sp4): 58.9 % EF(sp4-el): 60.9 % SV(sp4-el): 87.2 ml LA A4 area: 25.5 cm2 LA dimension(2D): 4.5 cm RA A4 area: 17.0 cm2 TAPSE: 2.5 cm Time Measurements MV dec time: 0.28 sec Doppler Measurements & Calculations MV E max jose: 130.8 cm/sec Lat Peak E' Jose: 9.9 cm/sec Med Peak E' Jose: 7.0 cm/sec MV A max jose: 137.5 cm/sec E/E' lat: 13.2 E/E' med: 18.7 MV E/A: 0.95 MV V2 max: 175.5 cm/sec MV P1/2t max jose: 142.7 cm/sec Ao V2 max: 185.3 cm/sec MV max P.4 mmHg MV P1/2t: 97.7 msec Ao max P.8 mmHg MV V2 mean: 94.9 cm/sec MV dec slope: 427.6 cm/sec2 Ao V2 mean: 126.8 cm/sec MV mean P.2 mmHg MVA(P1/2t): 2.3 cm2 Ao mean P.4 mmHg MV V2 VTI: 55.2 cm Ao V2 VTI: 45.7 cm AV (velocity ratio): 0.79 LV V1 max: 135.7 cm/sec PA V2 max: 132.7 cm/sec TR max jose: 305.5 cm/sec LV V1 max P.4 mmHg TR max P.3 mmHg LV V1 mean P.6 mmHg LV V1 mean: 102.1 cm/sec LV V1 VTI: 36.0 cm ECHO/Echo Complete W/ Contrast Interpretation Summary Normal LV size. Left ventricular systolic function is normal. The left ventricular ejection fraction is 60 %. Stage 1 diastolic dysfunction. The left atrium is moderately enlarged. Pulmonary artery systolic pressure is 40 mmHg. Ordering Physician: Farhana Silvestre Performed By: Gerson Ray RCS
--- NOTE | 2025-01-25 12:36 | CDU_ITS ---
Reason For Study Reason For Study: CVA Rt. Velocities/BP Lt. Velocities/BP Prox CCA 116.7/7.9 cm/sec. Prox CCA 202.2/26.0 cm/sec. Mid CCA 86.6/6.2 cm/sec. Mid CCA 276.4/39.9 cm/sec. Dist CCA 106.7/18.9 cm/sec. Dist CCA 290.6/39.9 cm/sec. Prox ICA 296.6/45.5 cm/sec. Prox ICA 183.0/27.5 cm/sec. Mid ICA 242.3/35.4 cm/sec. Mid ICA 134.0/25.9 cm/sec. Dist ICA 152.2/28.7 cm/sec. Dist ICA 70.8/16.7 cm/sec. Rt. ICA/CCA = 3.4. Lt. ICA/CCA = 0.7. Prox ECA 479.0/9.6 cm/sec. Prox ECA 320.1/0.0 cm/sec. Rt. Vert. 51.2/13.8 cm/sec. Lt. Vert. 63.2/10.2 cm/sec. Right Extracranial There is heterogeneous, irregular atherosclerotic plaque noted in the right common carotid artery. There is heterogeneous, irregular atherosclerotic plaque noted in the right internal carotid artery. The right internal carotid artery is very tortuous. There is heterogeneous, irregular atherosclerotic plaque noted in the right external carotid artery. Antegrade flow is noted in the right vertebral artery. Left Extracranial There is heterogeneous, irregular atherosclerotic plaque noted in the left common carotid artery. There is heterogeneous, irregular atherosclerotic plaque noted in the left internal carotid artery. The atherosclerotic plaque causes acoustic shadowing. The distal left internal carotid artery is not well visualized. There is heterogeneous, irregular atherosclerotic plaque noted in the left external carotid artery. Antegrade flow is noted in the left vertebral artery. Procedure Carotid Duplex 56711. This is a Carotid Duplex examination using B-mode, color flow and specral Doppler. The exam was diagnostic. Exam performed in department. VL/Carotid Duplex Ultrasound Interpretation Summary Severe (>70%) stenosis right extracranial internal carotid. Moderate (50-69%) stenosis left extracranial internal carotid. Limited due to c alcific shadowing, alternative imaging may be beneficial. Patent and antegrade vertebrals bilaterally. Ordering Physician: Farhana Silvestre Referring Physician: N/A Performed By: Giuliano Garnica RVT
[2025-01-25] MEDS: 0.9% Normal Saline (1000mL) 1,000 ML 125 ML IV ×2 (13:00→23:26)
[2025-01-25 14:15] LABS: Troponin T High Sens 4 HR 45 ng/L (<=14)
[2025-01-25] MEDS: Heparin Injection (Vial) 5,000 UNIT/ML VIAL 5000 UNIT SC ×2 (15:26→20:38)
--- NOTE | 2025-01-25 15:45 | MRI_ITS ---
PROCEDURE: BRAIN WITHOUT CONTRAST 01/25/2025 REASON FOR EXAM: STROKE LIKE SYMPTOMS TECHNIQUE: Multiplanar and multisequential MRI of the brain was performed without contrast. COMPARISON: CT head earlier today 01/25/2025 FINDINGS: No regions of abnormal restricted diffusion to indicate recent infarct. Mild generalized brain parenchymal volume loss, and chronic small-vessel ischemic-gliotic changes throughout the supratentorial white matter, and small focus of chronic lacunar infarct in the superior right cerebellar hemisphere. Normal ventricular caliber. No evidence of intracranial hemorrhage, extra-axial collection, mass effect, or other acute abnormality. Preserved major intracranial vascular flow voids. Prior right orbital cataract surgery. No mastoid effusions. Diffuse paranasal sinus peripheral mucoperiosteal thickening, with evidence of prior endoscopic sinus surgery with bilateral medial antrostomies, and probable bilateral ethmoidectomies. MRI/Brain without Contrast IMPRESSION: 1. No acute intracranial abnormality; no acute infarct. 2. Mild chronic small-vessel ischemic changes, with old right cerebellar lacuna r infarct. 3. Paranasal sinus disease with prior endoscopic sinus surgery. Reading Location: [id number]
[2025-01-25] MEDS: BRIMONIDINE 0.2% 5ML BOTTLE 1 DRP EACH EYE (20:42)
[2025-01-25] MEDS: Latanoprost 0.005% 1 Bottle 1 DRP OPHTHALMIC (20:42)
[2025-01-25] MEDS: Cholecalciferol (Vit D3) 125 MCG CAPSULE (5,000 UNITS) PO (23:26)
[2025-01-26] VITALS (8 sets, daily range): BP systolic 116–141; BP diastolic 42–79; PULSE 64–86; RESP 16–18; TEMP 36.4–37; O2SAT 93–98; BMI 34.4
[2025-01-26] MEDS: Heparin Injection (Vial) 5,000 UNIT/ML VIAL 5000 UNIT SC ×3 (06:40→21:09)
[2025-01-26 07:30] LABS: Hematocrit 28.4 % (37-47); Hemoglobin 9.4 g/dL (12.0-15.0); Immature Granulocytes Count 0.080 X10^3/uL (0.0-0.0); Mean Corp Hgb Conc 33.1 g/dL (32-36); Mean Corpuscular Volume 95.0 fL (81-99); Mean Platelet Vol. 9.3 fl (6.2-12.0); NRBC Flagged by Analyzer 0 % (0-5); Platelet Count 212 K/mm3 (150-450); RBC Distribution Width CV 14.8 % (11.6-14.6); RBC Distribution Width SD 51.4 fl (35.1-43.9); Red Blood Count 2.99 M/mm3 (4.2-5.4); White Blood Count 12.1 K/mm3 (4.4-11.0)
[2025-01-26 08:01] LABS: Anion Gap 16 (5-15); BUN 57 mg/dL (4-19); BUN/Creat Ratio 16.8 RATIO (10-20); Calcium,Total 9.7 mg/dL (7.6-11.0); Carbon Dioxide 23.1 mmol/L (21.0-32.0); Chloride 95 mmol/L (98-108); Cholesterol 106 mg/dL (<=200); Estimated Creatinine Clearance 16.56 ml/min (50-250); Glucose 85 mg/dL (70-99); Low Density Lipoprotein Calc. 22 mg/dL; Potassium 3.6 mmol/L (3.3-5.1); Triglycerides 257 mg/dL; Very Low Density Lipoprotein 51 mg/dL (5-40); cholesterol:hdl ratio screen 3.26
[2025-01-26] MEDS: Magnesium Chloride 64 MG Delay Rel.Tablet 128 MG PO (09:27)
[2025-01-26] MEDS: Calcium Carb/Vitamin D 1 TABLET Tablet PO (09:29)
[2025-01-26] MEDS: BRIMONIDINE 0.2% 5ML BOTTLE 1 DRP EACH EYE ×2 (09:29→21:08)
--- NOTE | 2025-01-26 09:31 | CASEMGMT ---
Social Work SW did not complete PHQ-9 as pt did not have a stroke. THIERRY Estrada
[2025-01-26] MEDS: Cholecalciferol (Vit D3) 125 MCG CAPSULE (5,000 UNITS) PO ×2 (09:38→21:07)
--- NOTE | 2025-01-26 11:14 | PN_ITS ---
Subjective Subjective Patient seen and examined. She is more alert today and says she feels much better. MRI was negative for stroke.She is on IV ceftriaxone for UTI Objective Data Objective Data Vital Signs: Vital Signs Temp Pulse Resp BP Pulse Ox O2 Del Method FiO2 97.8 F 69 17 141/79 H 95 Room Air 95 01/26/25 06:35 01/26/25 06:40 01/26/25 06:35 01/26/25 06:40 01/26/25 07:29 01/26/25 07:29 01/25/25 14:00 Oxygen Delivery Method Room Air Weight: 194 lb 10.691 oz Body Mass Index (BMI) 34.4 Intake & Output: Intake and Output for Last 24 Hours 01/24/25 01/25/25 01/26/25 23:59 23:59 23:59 Intake Total 2270 / 2270 1050 / 1050 Balance 2270 / 2270 1050 / 1050 Lab / Micro Data 01/26/25 06:14 01/26/25 06:14 Labs: Laboratory Results - last 24 hr 01/25/25 08:57: POC Glucose 210 H 01/25/25 10:59: Troponin T Hi Sens 2 Hr 50 H 01/25/25 12:56: POC Glucose 162 H 01/25/25 13:14: Troponin T Hi Sens 4Hr 45 H 01/25/25 16:48: POC Glucose 143 H 01/25/25 22:30: POC Glucose 109 H 01/26/25 06:10: POC Glucose 92 01/26/25 06:14: WBC 12.1 H, RBC 2.99 L, Hgb 9.4 L, Hct 28.4 L, MCV 95.0, MCH 31.4, MCHC 33.1, RDW Std Deviation 51.4 H, RDW Coeff of Vilma 14.8 H, Plt Count 212, MPV 9.3, Immature Gran % (Auto) 0.700, Neut % (Auto) 84.1 H, Lymph % (Auto) 6.4 L, [place] % (Auto) 8.4, Eos % (Auto) 0.2, Baso % (Auto) 0.2, Absolute Neuts (auto) 10.2 H, Absolute Lymphs (auto) 0.78 L, Nucleated RBC % 0, Sodium 134, Potassium 3.6, Chloride 95 L, Carbon Dioxide 23.1, Anion Gap 16 H, BUN 57 H, C reatinine 3.38 H, Estim Creat Clear Calc 16.56 L, Est GFR (MDRD) Non-Af 14 L, BUN/Creatinine Ratio 16.8, Glucose 85, Calcium 9.7, Triglycerides 257 H, Cholesterol 106, LDL Cholesterol, Calc 22, VLDL Cholesterol 51 H, HDL Cholesterol 33 L, Cholesterol/HDL Ratio 3.26 01/26/25 06:37: POC Glucose 97 Micro: Microbiology 01/25/25 10:22 Urine, Catheterized Urine Culture - Preliminary GNR lactose is architect Radiography Diagnostic Testing: Radiology Impression Carotid Duplex 01/25/25 12:36 Interpretation Summary Severe (>70%) stenosis right extracranial internal carotid. Moderate (50-69%) stenosis left extracranial internal carotid. Limited due to calcific shadowing, alternative imaging may be beneficial. Patent and antegrade vertebrals bilaterally. Ordering Physician: Farhana Silvestre Referring Physician: N/A Performed By: Giuliano Garnica, T Echocardiogram 01/25/25 12:36 Interpretation Summary Normal LV size. Left ventricular systolic function is normal. The left ventricular ejection fraction is 60 %. Stage 1 diastolic dysfunction. The left atrium is moderately enlarged. Pulmonary artery systolic pressure is 40 mmHg. Ordering Physician: Farhana Silvestre Performed By: Gerson Ray, [facility] Brain MRI 01/25/25 15:45 IMPRESSION: 1. No acute intracranial abnormality; no acute infarct. 2. Mild chronic small-vessel ischemic changes, with old right cerebellar lacunar infarct. 3. Paranasal sinus disease with prior endoscopic sinus surgery. Reading Location: [facility] Rhythm Strip Rhythm Strip: Sinus Rhythm Rate: 57 Ectopy: None Physical Exam Const alert and oriented x3 Constitutional Narrative: more alert and communicative today.lethargy has resolved. General Appearance: cooperative HEENT normocephalic, head/scalp atraumatic, hearing grossly normal bilaterally and moist oral mucous membranes Eyes PERRL, EOMs intact bilaterally and conjunctivae normal Neck no lymphadenopathy, supple and no JVD Resp normal respiratory effort, normal air movement, no retractions, no use of accessory muscles and clear to auscultation bilaterally Cardio regular rate, regular rhythm, S1 normal heart sound, S2 normal heart sound and no murmurs GI normal to inspection, nondistended, normoactive bowel sounds, soft to palpation, non-tender and non-distended Extremity normal to inspection, full ROM, normal capillary refill and no clubbing, cyanosis or edema General Extremity: no tenderness to palpation of joints or extremities Neuro oriented x3, CN's II-XII intact bilaterally, moves all extremities and no focal motor deficits Motor Exam: general weakness Psych thought process normal and cooperative Appearance: appropriate Assessment & Plan Assessment/Plan (1) Hyponatremia: (2) Generalized weakness: (3) Acute kidney injury superimposed on chronic kidney disease: (4) Slurring of speech: (5) Acute UTI: PLAN: Plan # Stroke like symptoms. * She was admitted with a complaint of slurred speech. She also felt very weak and frail. * Stroke alert was initially called. However in the ED after she had a CT of the brain which was negative was thought that her symptoms were likely more due to her UTI so she did not have any further stroke workup. * Will therefore admit under stroke protocol. Monitor NIH stroke scale. Unable to do CTA of the head and neck due to her RICHARD on CKD * Carotid ultrasound ordered which showed bilateral carotid stenosis of more than 70%. vasci;ar sirgeru * Started on aspirin and high intensity statin. * Consult neurology once MRI results. * PT OT consult. Fall precautions. #RICHARD on CKD: * Cr today is down to 3.38 from 3.65 yesterday. * baseline creatinine of around 1.9. * May likely be prerenal in light of her decreased intake and nausea. * Hydrate with IV fluids and trend creatinine. * Hold all nephrotoxic medications. * check renal USG. Check FeUrea * since it has started improving, will hold off on nephrologyy consult for now If it worsens, will consult nephro * If creatinine does not improve will consult nephrology and do further workup. #Bilateral carotid stenosis * Showed bilateral more than 80% stenosis. Already on aspirin and ezetimibe * Consult vascular surgery. * #UTI: Urinalysis showed evidence of UTI. Started on IV ceftriaxone. Urine cultures ordered. #Hyponatremia: resolved. Sodium is 134. #History of restless leg syndrome: Stable. On pramipexole #Hyper lipidemia: On ezetimibe #History of fibromyalgia: On Lyrica #Hypertension: Resume BP meds and stroke ruled out. #Type 2 diabetes mellitus: Insulin sliding scale. Hold Farxiga. On Lantus 15 units nightly. Insulin sliding scale. Accu-Cheks ACHS. #GERD: On PPI #History of rheumatoid arthritis: Prednisone DVT prophylaxis: heparin CODE STATUS: Full code * Charges/Coding Visit Charges Inpatient E&M: 96696 Subs Hosp L2
--- NOTE | 2025-01-26 11:39 | US_ITS ---
EXAM: US Retroperitoneal Limited, Renal CLINICAL INDICATION: RICHARD ON CKD TECHNIQUE: Real-time limited ultrasound of the retroperitoneum with image documentation. COMPARISON: No relevant prior studies available. FINDINGS: RIGHT KIDNEY: Unremarkable. No stones. No hydronephrosis. The right kidney measures 9.1 x 4.8 x 5.0 cm. LEFT KIDNEY: Unremarkable. No stones. No hydronephrosis. The left kidney measures 9.7 x 6.3 x 4.2 cm. BLADDER: Normal-appearing urinary bladder. Prevoid volume is 314 cc. Post void 0. US/Kidney and Bladder IMPRESSION: No acute findings in the retroperitoneum. Reading Location: [facility]
[2025-01-26] MEDS: 0.9% Normal Saline (1000mL) 1,000 ML 125 ML IV ×2 (12:05→20:59)
--- NOTE | 2025-01-26 13:04 | CASEMGMT ---
PANDA PATEL Assessment Face to Face with patient for initial transition planning/care coordination assessment. Pt is currently off of the floor. Pt's @ bedside and willing to assist. Care providers, pharmacy, and demographics verified. Admitting dx: Stroke Like Symptoms, UTI LACE Strata: 2 PCP: Silvino Subramanian Specialists: [place] reports that the pt sees a pigment pumper, linux support engineer, and agronomy technician through [facility] in [place]. Preferred Pharmacy: [facility] Insurance: [employer] A/B, [employer] Commercial Prescription Benefit: Yes LNOK: Urbano (H), Adelina (Daughter) Living Arrangements: Pt lives with her in a single story condo with a flat entrance ADLs/IADLs: reports that the pt is mainly indep but that he does assist with showers to ensure safety. See PT notes. Transportation: DME: CPAP @ [facility] with no additional oxygen. CBGM and sensors. Backup manual BGM with sufficient supplies including lancets, test strips, and EtOH swabs. Pt's also reports that the pt has a rollator, cane, shower chair, and grab bars. HHC/SNF: reports hx of OP PT @ [facility]. Hx @ [facility]. HH Hx about 8 months ago but cannot recall the name of the agency Plan: TBD. Pt's anticipates that the pt will be able to return home once medically ready but would appreciate follow up regarding HH or OP Tx needs. Denies further questions or concerns at this time. Report given to ADVISORY SOFTWARE ENGINEER CM. Clara Moralez RN, CM
--- NOTE | 2025-01-26 14:42 | CASEMGMT ---
Social Work SW met w/pt, pt completed HCPOA, put as POA. Pt declined to complete LW at this time. SW gave pt originals and copies, and placed a copy on the chart. THIERRY Estrada
--- NOTE | 2025-01-26 17:54 | EX.PCM.CON.S ---
Assessment & Plan Assessment/Plan (1) Stenosis of right carotid artery without cerebral infarction: PLAN: -asymptomatic -would not pursue contrast imaging given severity of CKD -PSV below 300 cm/s, EDV below 100 cm/s and ICA/CCA ratio <4 consistent with less severe degree of stenosis -discussed risks/benefits/alternatives with regards to carotid disease -will follow up in office -at this point would recommend serial imaging until velocities consistent with more severe degree of disease -cont asa -consider statin HPI Consult Data Date of Consult: 01/26/25 HPI Narrative HPI Narrative: RONI ACUNA, is a 69 F who presents with slurred speech, headache, dizziness, found to have UTI. Symptoms have resolved since admission/tx. Stroke workup performed to be complete and MRI was negative for infarct. Unable to obtain CTA due to stage 4 CKD. Duplex revealed right ICA stenosis low end of >70% with velocities 296/45 and ICA/CCA ratio 3.4. She is currently on ASA and zetia. No prior lateralized numbness/weakness/vision loss/speech difficulty. Does have bilateral upper/lower extremity neuropathy. +DM/HTN. Currently her outpatient store receiver suggests she should begin to prepare for need for dialysis or transplant. [facility] Medical History Diabetes Home Medications ?Medication ?Instructions ?Recorded ?Last Taken ?Type amlodipine 10 mg tablet 10 mg PO DAILY 05/28/14 01/24/25 History pramipexole 0.25 mg tablet 0.25 mg PO BID 05/28/14 01/24/25 History prednisone 5 mg tablet 5 mg PO DAILY 05/28/14 01/25/25 History pregabalin 100 mg capsule (Lyrica) 100 mg PO QHS 05/28/14 01/24/25 History aspirin 81 mg chewable tablet 81 mg PO DAILY@0800 05/29/14 01/25/25 History calcium 500 mg-vitamin D3 1,000 500 mg PO DAILY 05/29/14 01/25/25 History unit-vitamin K 40 mcg chewable tablet (Citracal-D3 Soft Chew) ergocalciferol (vitamin D2) 1,250 5,000 unit PO BID 05/29/14 01/25/25 History mcg (50,000 unit) capsule (Vitamin D2) ferrous gluconate 324 mg (37.5 mg 324 mg PO BID 05/29/14 01/25/25 History iron) tablet omega-3 fatty acids-fish oil 340 1 ea PO TID 05/29/14 Unknown History mg-1,000 mg capsule (Fish Oil) allopurinol 100 mg tablet 200 mg PO DAILY 01/25/25 01/24/25 History ascorbic acid (vitamin C) 1,000 mg 1 g PO DAILY 01/25/25 01/25/25 History capsule biotin 10,000 mcg capsule 10,000 mcg PO DAILY 01/25/25 01/25/25 History brimonidine 0.2 % eye drops 1 drp EACH EYE BID 01/25/25 01/25/25 History carvedilol 12.5 mg tablet 12.5 mg PO Q12H 01/25/25 01/25/25 History cetirizine 10 mg tablet 10 mg PO DAILY 01/25/25 01/25/25 History cyanocobalamin (vitamin B-12) 1,000 mcg PO DAILY 01/25/25 01/25/25 History 1,000 mcg capsule dapagliflozin propanediol 10 mg 10 mg PO DAILY 01/25/25 01/25/25 History tablet (Farxiga) dicyclomine 20 mg tablet 20 mg PO Q6H 01/25/25 01/25/25 History ezetimibe 10 mg tablet 10 mg PO DAILY 01/25/25 01/25/25 History folic acid 1 mg tablet 1 mg PO DAILY 01/25/25 01/25/25 History furosemide 20 mg tablet 20 mg PO BID 01/25/25 01/25/25 History hydralazine 100 mg tablet 100 mg PO TID 01/25/25 01/25/25 History hydroxychloroquine 200 mg tablet 200 mg PO BID 01/25/25 01/25/25 History insulin degludec 100 unit/mL (3 15 unit subcut QHS 01/25/25 01/24/25 History mL) subcutaneous pen (Tresiba FlexTouch U-100 insulin) isosorbide mononitrate 120 mg 120 mg PO DAILY 01/25/25 01/25/25 History tablet,extended release 24 hr latanoprost 0.005 % eye drops 1 drp ophthalmic (eye) QHS 01/25/25 01/24/25 History magnesium 250 mg tablet 250 mg PO DAILY 01/25/25 01/25/25 History multivitamin (Daily Value tablet) 1 tab PO DAILY 01/25/25 01/25/25 History omega-3 acid ethyl esters 1 gram 2 cap PO BID 01/25/25 01/25/25 History capsule pantoprazole 40 mg tablet,delayed 40 mg PO BID 01/25/25 01/25/25 History release potassium 99 mg tablet 99 mg PO DAILY 01/25/25 01/25/25 History prednisone 2.5 mg tablet 2.5 mg PO DAILY 01/25/25 01/25/25 History semaglutide 0.25 mg or 0.5 mg (2 0.25 mg subcut QWEEK 01/25/25 01/24/25 History mg/3 mL) subcutaneous pen injector (Ozempic) valsartan 160 mg tablet 320 mg PO DAILY 01/25/25 01/24/25 History Allergy/AdvReac Type Severity Reaction Status Date / Time Penicillins Allergy Hives Verified 01/25/25 09:00 Social History Smoking Status: Former smoker ROS Constitutional Constitutional: Denies chills, fever(s), frequent falls, lethargy or weakness Eyes Eyes: Denies blind spots, change in vision or loss of vision ENT HEENT: Denies bleeding gums, hoarseness or sore throat Cardiovascular Cardiovascular: Reports leg ulcers and numbness in extremities; Denies abdominal pain, bluish discoloration of hand/feet, chest pain with activity, claudication, cold extremities, cyanosis, dyspnea on exertion, erythema on extremities, irregular heart rhythm, leg edema or weakness in extremities Respiratory/Chest Respiratory/Chest: Denies cough, excessive phlegm production, shortness of breath at rest, shortness of breath with exertion or wheezing Gastrointestinal Gastrointestinal: Denies anorexia, change in stool character, constipation, diarrhea, melena or rectal bleeding Genitourinary Genitourinary: Denies dysuria or hematuria Musculoskeletal Musculoskeletal: Denies abnormal gait Integumentary Integumentary: Denies erythema, non-healing lesions or wounds Neurologic Neurologic: Reports abnormal speech; Denies focal weakness, headache(s), loss of vision, numbness, paresthesias or sensory deficit Hematologic/Lymphatic Hematologic/Lymphatic: Denies easy bleeding, easy bruising or lymphadenopathy Physical Exam Const alert, oriented x3, no apparent distress and healthy appearing General Appearance: cooperative; Negative for combative or lethargic Orientation / Consciousness: awake Exam Limitations: no limitations HEENT Head and Scalp: normocephalic and atraumatic Eyes EOMs intact bilaterally General Eye: normal appearance of both eyes Neck full ROM General: trachea midline Resp normal respiratory effort and no use of accessory muscles Effort and Inspection: Negative for labored, stridor or audible wheezes Cardio regular rate and regular rhythm Back/Spine Cervical Spine: cervical ROM normal Extremity full ROM, normal capillary refill and no clubbing, cyanosis or edema Skin no rashes or lesions noted Neuro oriented x3, CN's II-XII intact bilaterally, no focal motor deficits and no sensory deficits noted Psych thought process normal, cooperative, affect normal, speech normal and activity/motor behavior normal Lab / Micro Data 01/26/25 06:14 01/26/25 06:14 Labs: Laboratory Results - last 24 hr 01/25/25 08:57: POC Glucose 210 H 01/25/25 22:30: POC Glucose 109 H 01/26/25 06:10: POC Glucose 92 01/26/25 06:14: WBC 12.1 H, RBC 2.99 L, Hgb 9.4 L, Hct 28.4 L, MCV 95.0, MCH 31.4, MCHC 33.1, RDW Std Deviation 51.4 H, RDW Coeff of Vilma 14.8 H, Plt Count 212, MPV 9.3, Immature Gran % (Auto) 0.700, Neut % (Auto) 84.1 H, Lymph % (Auto) 6.4 L, [place] % (Auto) 8.4, Eos % (Auto) 0.2, Baso % (Auto) 0.2, Absolute Neuts (auto) 10.2 H, Absolute Lymphs (auto) 0.78 L, Nucleated RBC % 0, Sodium 134, Potassium 3.6, Chloride 95 L, Carbon Dioxide 23.1, Anion Gap 16 H, BUN 57 H, Creatinine 3.38 H, Estim Creat Clear Calc 16.56 L, Est GFR (MDRD) Non-Af 14 L, BUN/Creatinine Ratio 16.8, Glucose 85, Calcium 9.7, Triglycerides 257 H, Cholesterol 106, LDL Cholesterol, Calc 22, VLDL Cholesterol 51 H, HDL Cholesterol 33 L, Cholesterol/HDL Ratio 3.26 01/26/25 06:37: POC Glucose 97 01/26/25 11:43: POC Glucose 167 H 01/26/25 16:49: POC Glucose 153 H Micro: Microbiology 01/25/25 10:22 Urine, Catheterized Urine Culture - Preliminary GNR lactose ecommerce manager Rhythm Strip Rhythm Strip: Sinus Rhythm Rate: 57 Ectopy: None Imaging Radiology Impression Renal Ultrasound 01/26/25 11:39 IMPRESSION: No acute findings in the retroperitoneum. Reading Location: [facility] Charges/Coding Visit Charges Inpatient E&M: 74633 Init Hosp L2
[2025-01-26 18:43] LABS: Urea Nitrogen, Urine 217 mg/dL (NO RANGE EST.)
[2025-01-26] MEDS: Latanoprost 0.005% 1 Bottle 1 DRP OPHTHALMIC (21:08)
[2025-01-26] MEDS: Insulin Glargine-YFGN 100 UNIT/ML Pen 15 UNIT SC (21:10)
[2025-01-27] VITALS (7 sets, daily range): BP systolic 124–149; BP diastolic 44–62; PULSE 62–70; RESP 14–18; TEMP 36.6–36.7; O2SAT 95–100; BMI 34.4
[2025-01-27 06:15] LABS: Hematocrit 25.1 % (37-47); Hemoglobin 8.1 g/dL (12.0-15.0); Immature Granulocytes Count 0.150 X10^3/uL (0.0-0.0); Mean Corp Hgb Conc 32.3 g/dL (32-36); Mean Corpuscular Volume 95.8 fL (81-99); Mean Platelet Vol. 9.1 fl (6.2-12.0); NRBC Flagged by Analyzer 0 % (0-5); Platelet Count 179 K/mm3 (150-450); RBC Distribution Width CV 14.8 % (11.6-14.6); RBC Distribution Width SD 52.2 fl (35.1-43.9); Red Blood Count 2.62 M/mm3 (4.2-5.4); White Blood Count 9.1 K/mm3 (4.4-11.0)
[2025-01-27] MEDS: Heparin Injection (Vial) 5,000 UNIT/ML VIAL 5000 UNIT SC ×3 (06:19→21:56)
[2025-01-27 06:56] LABS: Anion Gap 13 (5-15); BUN 57 mg/dL (4-19); BUN/Creat Ratio 17.4 RATIO (10-20); Calcium,Total 8.9 mg/dL (7.6-11.0); Carbon Dioxide 22.6 mmol/L (21.0-32.0); Chloride 95 mmol/L (98-108); Estimated Creatinine Clearance 17.06 ml/min (50-250); Glucose 104 mg/dL (70-99); Potassium 3.7 mmol/L (3.3-5.1)
[2025-01-27] MEDS: Calcium Carb/Vitamin D 1 TABLET Tablet PO (08:26)
[2025-01-27] MEDS: Magnesium Chloride 64 MG Delay Rel.Tablet 128 MG PO (08:27)
[2025-01-27] MEDS: BRIMONIDINE 0.2% 5ML BOTTLE 1 DRP EACH EYE ×2 (08:36→21:47)
[2025-01-27] MEDS: Cholecalciferol (Vit D3) 125 MCG CAPSULE (5,000 UNITS) PO ×2 (10:25→21:48)
--- NOTE | 2025-01-27 14:27 | PCM.CONS.R ---
Assessment & Plan Assessment/Plan (1) Acute kidney injury superimposed on chronic kidney disease: PLAN: Patient has underlying diabetic nephropathy with baseline creatinine of around 1.9, CKD 4. Recently started on diuretics for chronic lower extremity edema. Was receiving ARB in the form of valsartan. Acute kidney injury in the setting of above plus urosepsis. Creatinine on admission was 3.8, but slowly improving with IV fluids, holding diuretics, holding ARB, antibiotics, volume expansion. There is no need for acute dialysis as patient has normokalemia, no acidosis, no signs of fluid overload, no uremia (2) Hyponatremia: PLAN: In the setting of acute kidney injury, use of diuretics. Not in a dangerous range, no need for hypertonic saline. HPI Consult Data Date of Consult: 01/27/25 HPI Narrative Reason for Consultation: Acute kidney injury on CKD 4. HPI Narrative: LDEA ACUNA, is a 69 F who presents with altered mental status. Leda has a history of type 2 diabetes mellitus, rheumatoid arthritis, gout, hypertension, vascular disease and CKD 4, presumably secondary to diabetic nephropathy. She is under care of intranet support, Dr. Salguero in [place]. Apparently she was told that she will require dialysis soon, no access for dialysis as of yet. Recently she has been placed on the diuretics due to lower extremity edema. On presentation she was found to have urosepsis. Treated with IV fluids, stopping diuretics, antibiotics, holding valsartan. The creatinine on admission was 3.9, yesterday was 3.6, today it is down to 3.3. She makes urine. Electrolytes are fine, she is not uremic [facility] Medical History Diabetes Home Medications ?Medication ?Instructions ?Recorded ?Last Taken ?Type amlodipine 10 mg tablet 10 mg PO DAILY 05/28/14 01/24/25 History pramipexole 0.25 mg tablet 0.25 mg PO BID 05/28/14 01/24/25 History prednisone 5 mg tablet 5 mg PO DAILY 05/28/14 01/25/25 History pregabalin 100 mg capsule (Lyrica) 100 mg PO QHS 05/28/14 01/24/25 History aspirin 81 mg chewable tablet 81 mg PO DAILY@0800 05/29/14 01/25/25 History calcium 500 mg-vitamin D3 1,000 500 mg PO DAILY 05/29/14 01/25/25 History unit-vitamin K 40 mcg chewable tablet (Citracal-D3 Soft Chew) ergocalciferol (vitamin D2) 1,250 5,000 unit PO BID 05/29/14 01/25/25 History mcg (50,000 unit) capsule (Vitamin D2) ferrous gluconate 324 mg (37.5 mg 324 mg PO BID 05/29/14 01/25/25 History iron) tablet omega-3 fatty acids-fish oil 340 1 ea PO TID 05/29/14 Unknown History mg-1,000 mg capsule (Fish Oil) allopurinol 100 mg tablet 200 mg PO DAILY 01/25/25 01/24/25 History ascorbic acid (vitamin C) 1,000 mg 1 g PO DAILY 01/25/25 01/25/25 History capsule biotin 10,000 mcg capsule 10,000 mcg PO DAILY 01/25/25 01/25/25 History brimonidine 0.2 % eye drops 1 drp EACH EYE BID 01/25/25 01/25/25 History carvedilol 12.5 mg tablet 12.5 mg PO Q12H 01/25/25 01/25/25 History cetirizine 10 mg tablet 10 mg PO DAILY 01/25/25 01/25/25 History cyanocobalamin (vitamin B-12) 1,000 mcg PO DAILY 01/25/25 01/25/25 History 1,000 mcg capsule dapagliflozin propanediol 10 mg 10 mg PO DAILY 01/25/25 01/25/25 History tablet (Farxiga) dicyclomine 20 mg tablet 20 mg PO Q6H 01/25/25 01/25/25 History ezetimibe 10 mg tablet 10 mg PO DAILY 01/25/25 01/25/25 History folic acid 1 mg tablet 1 mg PO DAILY 01/25/25 01/25/25 History furosemide 20 mg tablet 20 mg PO BID 01/25/25 01/25/25 History hydralazine 100 mg tablet 100 mg PO TID 01/25/25 01/25/25 History hydroxychloroquine 200 mg tablet 200 mg PO BID 01/25/25 01/25/25 History insulin degludec 100 unit/mL (3 15 unit subcut QHS 01/25/25 01/24/25 History mL) subcutaneous pen (Tresiba FlexTouch U-100 insulin) isosorbide mononitrate 120 mg 120 mg PO DAILY 01/25/25 01/25/25 History tablet,extended release 24 hr latanoprost 0.005 % eye drops 1 drp ophthalmic (eye) QHS 01/25/25 01/24/25 History magnesium 250 mg tablet 250 mg PO DAILY 01/25/25 01/25/25 History multivitamin (Daily Value tablet) 1 tab PO DAILY 01/25/25 01/25/25 History omega-3 acid ethyl esters 1 gram 2 cap PO BID 01/25/25 01/25/25 History capsule pantoprazole 40 mg tablet,delayed 40 mg PO BID 01/25/25 01/25/25 History release potassium 99 mg tablet 99 mg PO DAILY 01/25/25 01/25/25 History prednisone 2.5 mg tablet 2.5 mg PO DAILY 01/25/25 01/25/25 History semaglutide 0.25 mg or 0.5 mg (2 0.25 mg subcut QWEEK 01/25/25 01/24/25 History mg/3 mL) subcutaneous pen injector (Ozempic) valsartan 160 mg tablet 320 mg PO DAILY 01/25/25 01/24/25 History Allergy/AdvReac Type Severity Reaction Status Date / Time Penicillins Allergy Hives Verified 01/25/25 09:00 Social History Smoking Status: Former smoker ROS Constitutional Constitutional: Reports malaise ENT HEENT: Denies dry mouth, epistaxis, hoarseness, loss taste/smell or nasal congestion Cardiovascular Cardiovascular: Denies chest pain, claudication, diaphoresis, dyspnea on exertion, edema, irregular heart rhythm, leg edema, orthopnea, palpitations or syncope Respiratory/Chest Respiratory/Chest: Denies dry cough, dyspnea on exertion, hemoptysis, portable oxygen @ home, productive cough, shortness of breath at rest or wheezing Gastrointestinal Gastrointestinal: Denies abdominal pain, anorexia, diarrhea, dry heaves, hematemesis, hematochezia, melena, nausea, rectal bleeding, vomiting or weight changes Genitourinary Genitourinary: Denies change in urinary stream, difficulty urinating, dribbling, dysuria, flank pain, hematuria, nocturia, oliguria, post void dribbling, urinary frequency, urinary hesitancy, urinary incontinence or urinary urgency Musculoskeletal Musculoskeletal: Denies abnormal gait, arthralgias, joint stiffness, joint swelling, muscle cramps or myalgias Neurologic Neurologic: Denies abnormal gait, burning sensations, confusion, focal weakness, frequent falls, headache(s), numbness, restless legs, seizures, syncope, tremor(s) or weakness Physical Exam Const alert, oriented x3 and no apparent distress General Appearance: well developed Orientation / Consciousness: oriented to person, oriented to place and oriented to time Nutritional Appearance: obese HEENT normocephalic Head and Scalp: atraumatic Neck no lymphadenopathy Resp no use of accessory muscles and clear to auscultation bilaterally Cardio regular rate and no rub GI non-tender and non-distended Auscultation: normoactive bowel sounds Extremity no clubbing, cyanosis or edema Neuro Sensorium / Orientation: awake and alert Psych cooperative Medical Records Data Attestation: I reviewed the patient's medical records Lab / Micro Data Attestation: I reviewed the patient's lab results. 01/27/25 06:01 01/27/25 06:01 Labs: Laboratory Results - last 24 hr 01/26/25 16:49: POC Glucose 153 H 01/26/25 17:38: Urine Creatinine 29.00, Urine Urea Nitrogen 217 01/26/25 21:03: POC Glucose 163 H 01/27/25 06:01: WBC 9.1, RBC 2.62 L, Hgb 8.1 L, Hct 25.1 L, MCV 95.8, MCH 30.9, MCHC 32.3, RDW Std Deviation 52.2 H, RDW Coeff of Vilma 14.8 H, Plt Count 179, MPV 9.1, Immature Gran % (Auto) 1.600 H, Neut % (Auto) 73.8 H, Lymph % (Auto) 11.0 L, [place] % (Auto) 11.3 H, Eos % (Auto) 1.9, Baso % (Auto) 0.4, Absolute Neuts (auto) 6.7, Absolute Lymphs (auto) 1.00, Nucleated RBC % 0, Sodium 131 L, Potassium 3.7, Chloride 95 L, Carbon Dioxide 22.6, Anion Gap 13, BUN 57 H, Creatinine 3.28 H, Estim Creat Clear Calc 17.06 L, Est GFR (MDRD) Non-Af 15 L, BUN/Creatinine Ratio 17.4, Glucose 104 H, Calcium 8.9 01/27/25 06:16: POC Glucose 110 H 01/27/25 11:40: POC Glucose 170 H Micro: Microbiology 01/25/25 10:22 Urine, Catheterized Urine Culture - Final Escherichia coli Rhythm Strip Rhythm Strip: Sinus Rhythm Rate: 57 Ectopy: None
--- NOTE | 2025-01-27 14:36 | PN_ITS ---
Subjective Subjective Patient seen and examined. She had no active complaints this morning and is feeling better. Review of systems otherwise negative. She has remained hemodynamically stable. Creatinine is down to around 3.3 today. Objective Data Objective Data Vital Signs: Vital Signs Temp Pulse Resp BP Pulse Ox O2 Del Method FiO2 98.1 F 64 15 146/48 H 99 Room Air 95 01/27/25 08:17 01/27/25 13:27 01/27/25 08:17 01/27/25 13:27 01/27/25 08:17 01/27/25 08:30 01/25/25 14:00 Oxygen Delivery Method Room Air Weight: 194 lb 10.691 oz Body Mass Index (BMI) 34.4 Intake & Output: Intake and Output for Last 24 Hours 01/25/25 01/26/25 01/27/25 23:59 23:59 23:59 Intake Total 2270 / 2270 2700 / 2900 1450 / 1450 Output Total 450 / 450 Balance 2270 / 2270 2700 / 2900 1000 / 1000 Lab / Micro Data 01/27/25 06:01 01/27/25 06:01 Labs: Laboratory Results - last 24 hr 01/26/25 16:49: POC Glucose 153 H 01/26/25 17:38: Urine Creatinine 29.00, Urine Urea Nitrogen 217 01/26/25 21:03: POC Glucose 163 H 01/27/25 06:01: WBC 9.1, RBC 2.62 L, Hgb 8.1 L, Hct 25.1 L, MCV 95.8, MCH 30.9, MCHC 32.3, RDW Std Deviation 52.2 H, RDW Coeff of Vilma 14.8 H, Plt Count 179, MPV 9.1, Immature Gran % (Auto) 1.600 H, Neut % (Auto) 73.8 H, Lymph % (Auto) 11.0 L , [place] % (Auto) 11.3 H, Eos % (Auto) 1.9, Baso % (Auto) 0.4, Absolute Neuts (auto) 6.7, Absolute Lymphs (auto) 1.00, Nucleated RBC % 0, Sodium 131 L, Potassium 3.7, Chloride 95 L, Carbon Dioxide 22.6, Anion Gap 13, BUN 57 H, C reatinine 3.28 H, Estim Creat Clear Calc 17.06 L, Est GFR (MDRD) Non-Af 15 L, BUN/Creatinine Ratio 17.4, Glucose 104 H, Calcium 8.9 01/27/25 06:16: POC Glucose 110 H 01/27/25 11:40: POC Glucose 170 H Micro: Microbiology 01/25/25 10:22 Urine, Catheterized Urine Culture - Final Escherichia coli Rhythm Strip Rhythm Strip: Sinus Rhythm Rate: 57 Ectopy: None Physical Exam Const alert and oriented x3 General Appearance: cooperative Orientation / Consciousness: lethargic HEENT normocephalic, head/scalp atraumatic, hearing grossly normal bilaterally and moist oral mucous membranes Eyes PERRL, EOMs intact bilaterally and conjunctivae normal Neck no lymphadenopathy, supple and no JVD Resp normal respiratory effort, normal air movement, no retractions, no use of accessory muscles and clear to auscultation bilaterally Cardio regular rate, regular rhythm, S1 normal heart sound, S2 normal heart sound and no murmurs GI normal to inspection, nondistended, normoactive bowel sounds, soft to palpation, non-tender and non-distended Extremity normal to inspection, full ROM, normal capillary refill and no clubbing, cyanosis or edema General Extremity: no tenderness to palpation of joints or extremities Skin General Skin Exam: no breakdown Neuro oriented x3, CN's II-XII intact bilaterally, moves all extremities and no focal motor deficits Motor Exam: general weakness Psych thought process normal and cooperative Psych Narrative: flat affect Appearance: appropriate Assessment & Plan Assessment/Plan (1) Hyponatremia: (2) Generalized weakness: (3) Acute kidney injury superimposed on chronic kidney disease: (4) Slurring of speech: (5) Acute UTI: PLAN: Plan # Stroke like symptoms. * She was admitted with a complaint of slurred speech. She also felt very weak and frail. * Stroke alert was initially called. However in the ED after she had a CT of the brain which was negative was thought that her symptoms were likely more due to her UTI so she did not have any further stroke workup. * Will therefore admit under stroke protocol. Monitor NIH stroke scale. Unable to do CTA of the head and neck due to her RICHARD on CKD * Carotid ultrasound ordered which showed bilateral carotid stenosis of more than 70%. vascular surgery reviewed patient and recommended outpatient follow up. * Started on aspirin and high intensity statin. * Consult neurology once MRI results. * PT OT consult. Fall precautions. #RICHARD on CKD: * Cr today is down to 3.28 today. * baseline creatinine of around 1.9. * May likely be prerenal in light of her decreased intake and nausea. * Hydrate with IV fluids and trend creatinine. * Hold all nephrotoxic medications. * renal USG is normal. FeUrea was 44% indicating intrinsic renal disease * nephrology consulted and recommends continued gentle hydration with IVF. * #Bilateral carotid stenosis * Showed bilateral more than 80% stenosis. Already on aspirin and ezetimibe * Consult vascular surgery. * #UTI: Urinalysis showed evidence of UTI. on IV ceftriaxone. Urine cultures growing E. coli which is pansensitive. Continue ceftriaxone #Hyponatremia: resolved. Sodium is 134. #History of restless leg syndrome: Stable. On pramipexole #Hyper lipidemia: On ezetimibe #History of fibromyalgia: On Lyrica #Hypertension: Resume BP meds and stroke ruled out. #Type 2 diabetes mellitus: Insulin sliding scale. Hold Farxiga. On Lantus 15 units nightly. Insulin sliding scale. Accu-Cheks ACHS. #GERD: On PPI #History of rheumatoid arthritis: Prednisone DVT prophylaxis: heparin CODE STATUS: Full code Disposition: anticipate dc by tomorrow * Charges/Coding Visit Charges Inpatient E&M: 10140 Subs Hosp L2
[2025-01-27] MEDS: 0.9% Normal Saline (1000mL) 1,000 ML 125 ML IV ×2 (15:55→23:56)
[2025-01-27] MEDS: Insulin Glargine-YFGN 100 UNIT/ML Pen 15 UNIT SC (21:44)
[2025-01-27] MEDS: Latanoprost 0.005% 1 Bottle 1 DRP OPHTHALMIC (21:47)
[2025-01-28 03:15] VITALS: BP 146/56; PULSE 72; RESP 18; TEMP 36.6; O2SAT 95
[2025-01-28 06:56] VITALS: BP 136/44; PULSE 68
[2025-01-28] MEDS: Heparin Injection (Vial) 5,000 UNIT/ML VIAL 5000 UNIT SC (06:59)
[2025-01-28 07:17] LABS: Hematocrit 26.4 % (37-47); Hemoglobin 8.4 g/dL (12.0-15.0); Immature Granulocytes Count 0.100 X10^3/uL (0.0-0.0); Mean Corp Hgb Conc 31.8 g/dL (32-36); Mean Corpuscular Volume 95.3 fL (81-99); Mean Platelet Vol. 9.5 fl (6.2-12.0); NRBC Flagged by Analyzer 0 % (0-5); Platelet Count 213 K/mm3 (150-450); RBC Distribution Width CV 14.6 % (11.6-14.6); RBC Distribution Width SD 51.0 fl (35.1-43.9); Red Blood Count 2.77 M/mm3 (4.2-5.4); White Blood Count 10.2 K/mm3 (4.4-11.0)
[2025-01-28 08:11] LABS: Anion Gap 14 (5-15); BUN 49 mg/dL (4-19); BUN/Creat Ratio 16.5 RATIO (10-20); Calcium,Total 9.5 mg/dL (7.6-11.0); Carbon Dioxide 22.1 mmol/L (21.0-32.0); Chloride 99 mmol/L (98-108); Estimated Creatinine Clearance 18.97 ml/min (50-250); Glucose 84 mg/dL (70-99); Potassium 3.9 mmol/L (3.3-5.1)
[2025-01-28 08:41] VITALS: BP 102/88; PULSE 63; RESP 14; TEMP 37; O2SAT 98
[2025-01-28] MEDS: Magnesium Chloride 64 MG Delay Rel.Tablet 128 MG PO (08:46)
[2025-01-28] MEDS: Calcium Carb/Vitamin D 1 TABLET Tablet PO (08:50)
[2025-01-28] MEDS: Cholecalciferol (Vit D3) 125 MCG CAPSULE (5,000 UNITS) PO (08:51)
[2025-01-28] MEDS: BRIMONIDINE 0.2% 5ML BOTTLE 1 DRP EACH EYE (11:11)
--- NOTE | 2025-01-28 11:25 | DS.PCM_ITS ---
Providers Date of Admission: 01/25/25 Date of Discharge: 01/28/25 Primary Care Physician: JEFFY ROTHMAN Consultations 01/25/25 15:17 Consult: Vascular Surgery Routine Consulting Provider: Sukumar Cbaral Reason for Consult: bilateral carotid stenosis EMERGENT Consult: No Notified: Yes Date Notified: 01/25/25 Time Notified: 15:17 Method of Notification: Text 01/27/25 07:51 Consult: Nephrology Routine Consulting Provider: Michael Morales Reason for Consult: RICHARD on CKD EMERGENT Consult: No Notified: Yes Date Notified: 01/27/25 Time Notified: 08:07 Method of Notification: Answering Service Reason For Visit: STROKE LIKE SYMPTOMS, UTI Diagnosis Discharge Diagnosis (1) Hyponatremia: Status: Acute Code(s): E87.1 - Hypo-osmolality and hyponatremia (2) Generalized weakness: Status: Acute Code(s): R53.1 - Weakness (3) Acute kidney injury superimposed on chronic kidney disease: Status: Chronic Code(s): N17.9 - Acute kidney failure, unspecified; N18.9 - Chronic kidney disease, unspecified (4) Slurring of speech: Status: Acute Code(s): R47.81 - Slurred speech (5) Acute UTI: Status: Acute Code(s): N39.0 - Urinary tract infection, site not specified Plan # Stroke like symptoms. * She was admitted with a complaint of slurred speech. She also felt very weak and frail. * Stroke alert was initially called. However in the ED after she had a CT of the brain which was negative was thought that her symptoms were likely more due to her UTI so she did not have any further stroke workup. * Will therefore admit under stroke protocol. Monitor NIH stroke scale. Unable to do CTA of the head and neck due to her RICHARD on CKD * Carotid ultrasound ordered which showed bilateral carotid stenosis of more than 70%. vascular surgery reviewed patient and recommended outpatient follow up. * Started on aspirin and high intensity statin. * Consult neurology once MRI results. * PT OT consult. Fall precautions. #RICHARD on CKD: * Cr today is down to 3.28 today. * baseline creatinine of around 1.9. * May likely be prerenal in light of her decreased intake and nausea. * Hydrate with IV fluids and trend creatinine. * Hold all nephrotoxic medications. * renal USG is normal. FeUrea was 44% indicating intrinsic renal disease * nephrology consulted and recommends continued gentle hydration with IVF. * #Bilateral carotid stenosis * Showed bilateral more than 80% stenosis. Already on aspirin and ezetimibe * Consult vascular surgery. * #UTI: Urinalysis showed evidence of UTI. on IV ceftriaxone. Urine cultures growing E. coli which is pansensitive. Continue ceftriaxone #Hyponatremia: resolved. Sodium is 134. #History of restless leg syndrome: Stable. On pramipexole #Hyper lipidemia: On ezetimibe #History of fibromyalgia: On Lyrica #Hypertension: Resume BP meds and stroke ruled out. #Type 2 diabetes mellitus: Insulin sliding scale. Hold Farxiga. On Lantus 15 units nightly. Insulin sliding scale. Accu-Cheks ACHS. #GERD: On PPI #History of rheumatoid arthritis: Prednisone DVT prophylaxis: heparin CODE STATUS: Full code Disposition: anticipate dc by tomorrow * Medications at Discharge Home Medications amlodipine 10 mg tablet 10 mg PO DAILY 05/28/14 pramipexole 0.25 mg tablet 0.25 mg PO BID 05/28/14 prednisone 5 mg tablet 5 mg PO DAILY 05/28/14 pregabalin 100 mg capsule (Lyrica) 100 mg PO QHS 05/28/14 aspirin 81 mg chewable tablet 81 mg PO DAILY@0800 05/29/14 calcium 500 mg-vitamin D3 1,000 unit-vitamin K 40 mcg chewable tablet (Citracal- D3 Soft Chew) 500 mg PO DAILY 05/29/14 ergocalciferol (vitamin D2) 1,250 mcg (50,000 unit) capsule (Vitamin D2) 5,000 unit PO BID 05/29/14 ferrous gluconate 324 mg (37.5 mg iron) tablet 324 mg PO BID 05/29/14 omega-3 fatty acids-fish oil 340 mg-1,000 mg capsule (Fish Oil) 1 ea PO TID 05/29/14 allopurinol 100 mg tablet 200 mg PO DAILY 01/25/25 ascorbic acid (vitamin C) 1,000 mg capsule 1 g PO DAILY 01/25/25 biotin 10,000 mcg capsule 10,000 mcg PO DAILY 01/25/25 brimonidine 0.2 % eye drops 1 drp EACH EYE BID 01/25/25 carvedilol 12.5 mg tablet 12.5 mg PO Q12H 01/25/25 cetirizine 10 mg tablet 10 mg PO DAILY 01/25/25 cyanocobalamin (vitamin B-12) 1,000 mcg capsule 1,000 mcg PO DAILY 01/25/25 dapagliflozin propanediol 10 mg tablet (Farxiga) 10 mg PO DAILY 01/25/25 dicyclomine 20 mg tablet 20 mg PO Q6H 01/25/25 ezetimibe 10 mg tablet 10 mg PO DAILY 01/25/25 folic acid 1 mg tablet 1 mg PO DAILY 01/25/25 furosemide 20 mg tablet 20 mg PO BID 01/25/25 hydralazine 100 mg tablet 100 mg PO TID 01/25/25 hydroxychloroquine 200 mg tablet 200 mg PO BID 01/25/25 insulin degludec 100 unit/mL (3 mL) subcutaneous pen (Tresiba FlexTouch U-100 insulin) 15 unit subcut QHS 01/25/25 isosorbide mononitrate 120 mg tablet,extended release 24 hr 120 mg PO DAILY 01/25/25 latanoprost 0.005 % eye drops 1 drp ophthalmic (eye) QHS 01/25/25 magnesium 250 mg tablet 250 mg PO DAILY 01/25/25 multivitamin (Daily Value tablet) 1 tab PO DAILY 01/25/25 omega-3 acid ethyl esters 1 gram capsule 2 cap PO BID 01/25/25 pantoprazole 40 mg tablet,delayed release 40 mg PO BID 01/25/25 potassium 99 mg tablet 99 mg PO DAILY 01/25/25 prednisone 2.5 mg tablet 2.5 mg PO DAILY 01/25/25 semaglutide 0.25 mg or 0.5 mg (2 mg/3 mL) subcutaneous pen injector (Ozempic) 0.25 mg subcut QWEEK 01/25/25 valsartan 160 mg tablet 320 mg PO DAILY 01/25/25 cefdinir 300 mg capsule 300 mg PO BID #10 caps 01/28/25 Hospital Course Operations None Procedures 2-D Echocardiogram Summary of Care Provided Minutes Spent on Discharge: 45 Hospital Course: RONI ACUNA, is a 69 F with a PMH as outlined who presents via the ED on 01/25/2025 with a complaint of slurred speech. Her last known well was around 7:30am on the day of admission when she was eating breakfast and started having slurrring of her speech. She also felt very weak and also complained of intermittednt headache and lightheadedness. She therefore called the EMS and was brought in to the ED. She denied any focal weakness, numbness or tingling, or any mouth droop. Review of systems is otherwise negative. Vitals in the ED were blood pressure of 141/52, pulse rate of 62 and respiratory rate of 18. Oxygen saturation was 100% on room air. CBC showed hemoglobin of 9.4 and WBC of 11.1 as well as platelets of 224. INR was 1. Chemistry showed sodium of 130 with potassium of 4.2 and bicarb of 25.6. Creatinine was 3.65. Urinalysis showed more than 100 WBC and elevated leukocyte esterase as well as positive nitrites and urine bacteria was 1+. CT of the brain showed no acute intracranial pathology. Stroke alert was called but was canceled when she arrived in the ED by the ED doctor as she felt it was more likely due to the UTI. She was admitted to be managed for debility and weakness due to UTI as well as a stroke rule out. She was started on IV ceftriaxone. MRI of the brain was negative for any evidence of stroke. CTA of the head and neck done showed bilateral carotids artery stenosis. Patient was already on aspirin and statin made. Vascular surgery was consulted and commended the patient follow-up on outpatient basis as there is nothing acute to be done in the hospital. Of note she was also treated for UTI and urine cultures grew E. coli which was pansensitive. She also had RICHARD on CKD and nephrology was eventually consulted. Her creatinine gradually trended down with hydration. Nephrology recommended that patient follow-up on outpatient basis and patient already did have a nephrology she was seen for her CKD. She did well with therapy and was discharged home on 01/28/2025 on p.o. cefdinir 300 mg twice daily for 5 days. She is follow-up with her primary care doctor within 1 to 2 weeks. Patient seen and examined prior to discharge. She had no active complaints. Review of systems otherwise negative. Labs and vitals reviewed. Home medication reviewed and reconciled. Physical Exam Const alert and oriented x3 General Appearance: cooperative and comfortable Orientation / Consciousness: lethargic HEENT normocephalic, head/scalp atraumatic, hearing grossly normal bilaterally and moist oral mucous membranes Mouth: oral and palatal mucosa normal Eyes PERRL, EOMs intact bilaterally and conjunctivae normal Neck no lymphadenopathy, supple and no JVD Resp normal respiratory effort, normal air movement, no retractions, no use of accessory muscles and clear to auscultation bilaterally Cardio regular rate, regular rhythm, S1 normal heart sound, S2 normal heart sound and no murmurs GI normal to inspection, nondistended, normoactive bowel sounds, soft to palpation, non-tender and non-distended Extremity normal to inspection, full ROM, normal capillary refill and no clubbing, cyanosis or edema General Extremity: no tenderness to palpation of joints or extremities Skin no rashes or lesions noted General Skin Exam: no breakdown Neuro oriented x3, CN's II-XII intact bilaterally, moves all extremities and no focal motor deficits Neuro Narrative: Motor Exam: general weakness Psych thought process normal and cooperative Appearance: appropriate Weight / BMI Weight Weight: 194 lb 10.691 oz Body Mass Index (BMI) 34.4 ABG / Lab / Microbiology Data 01/28/25 06:33 01/28/25 06:33 Laboratory: Laboratory Results - last 24 hr 01/27/25 17:25: POC Glucose 138 H 01/27/25 21:43: POC Glucose 108 H 01/28/25 06:33: WBC 10.2, RBC 2.77 L, Hgb 8.4 L, Hct 26.4 L, MCV 95.3, MCH 30.3, MCHC 31.8 L, RDW Std Deviation 51.0 H, RDW Coeff of Vilma 14.6, Plt Count 213, MPV 9.5, Immature Gran % (Auto) 1.000 H, Neut % (Auto) 77.7 H, Lymph % (Auto) 7.8 L, [place] % (Auto) 11.2 H, Eos % (Auto) 1.9, Baso % (Auto) 0.4, Absolute Neuts (auto) 7.9 H, Absolute Lymphs (auto) 0.79 L, Nucleated RBC % 0, Sodium 136, Potassium 3.9, Chloride 99, Carbon Dioxide 22.1, Anion Gap 14, BUN 49 H, Creatinine 2.95 H , Estim Creat Clear Calc 18.97 L, Est GFR (MDRD) Non-Af 17 L, BUN/Creatinine Ratio 16.5, Glucose 84, Calcium 9.5 01/28/25 07:05: POC Glucose 85 01/28/25 11:17: POC Glucose 151 H Microbiology: Microbiology 01/25/25 10:22 Urine, Catheterized Urine Culture - Final Escherichia coli D/C Instructions Discharge Activity: Return to Normal Activity Weight Bearing Status: Weight bearing as tolerated Call your doctor if you observe: Fever of 101 or Higher, Shortness of breath, Dizziness, Swelling in the ankles and Chest pain DC O2, CPAP, BIPAP Needs Home O2 Discharge instructions: No DC home with Oxygen: No Meaningful Use Info Meaningful Use Meaningful Use Diagnoses (Choose all that apply): None applicable Discharge Plan Admission Admit Date/Time: 01/25/25 11:05 Primary Reason for Your Visit: UTI, debility, RICHARD on CKD Attending Provider: Farhana Silvestre Primary Care Provider: JEFFY ROTHMAN Consulting Providers: Sukumar Cabral; Michael Morales Instructions Patient Instructions: ED UTI Fem Ch Discharge Orders/Prescriptions Prescriptions: New cefdinir 300 mg capsule 300 mg PO BID Qty: 10 0RF Continued prednisone 5 MG tablet 5 mg PO DAILY Patient Comments: Rheumatoid arthritis Rx Instructions: TAKE WITH 2.5MG FOR TOTAL DAILY DOSE OF 7.5MG amlodipine 10 MG tablet 10 mg PO DAILY Patient Comments: Blood pressure pramipexole 0.25 MG tablet 0.25 mg PO BID Patient Comments: Restless legs pregabalin [Lyrica] 100 MG capsule 100 mg PO QHS Patient Comments: Neuropathy aspirin 81 MG tablet,chewable 81 mg PO DAILY@0800 Patient Comments: [employer] ergocalciferol (vitamin D2) [Vitamin D2] 50,000 UNIT capsule 5,000 unit PO BID Patient Comments: Supplement omega-3 fatty acids-fish oil [Fish Oil] 1 EACH capsule 1 ea PO TID Patient Comments: Heart health ferrous gluconate 325 MG tablet 324 mg PO BID Patient Comments: Iron supplement calcium-vitamin D3-vitamin K [Citracal-D3 Soft Chew] 1 EACH tablet,chewable 500 mg PO DAILY allopurinol 100 mg tablet 200 mg PO DAILY ascorbic acid (vitamin C) 1,000 mg capsule 1 g PO DAILY biotin 10,000 mcg capsule 10,000 mcg PO DAILY brimonidine 0.2 % drops 1 drp EACH EYE BID Rx Instructions: administer approximately 8 hours apart carvedilol 12.5 mg tablet 12.5 mg PO Q12H cetirizine 10 mg tablet 10 mg PO DAILY cyanocobalamin (vitamin B-12) 1,000 mcg capsule 1,000 mcg PO DAILY dicyclomine 20 mg tablet 20 mg PO Q6H ezetimibe 10 mg tablet 10 mg PO DAILY dapagliflozin propanediol [Farxiga] 10 mg tablet 10 mg PO DAILY isosorbide mononitrate 120 mg tablet extended release 24 hr 120 mg PO DAILY hydralazine 100 mg tablet 100 mg PO TID folic acid 1 mg tablet 1 mg PO DAILY latanoprost 0.005 % drops 1 drp ophthalmic (eye) QHS magnesium 250 mg tablet 250 mg PO DAILY multivitamin [Daily Value] Tablet 1 tab PO DAILY Ozempic 0.25 mg or 0.5 mg (2 mg/3 mL) pen injector 0.25 mg subcut QWEEK Rx Instructions: for 4 weeks potassium 99 mg tablet 99 mg PO DAILY prednisone 2.5 mg tablet 2.5 mg PO DAILY Rx Instructions: TAKE WITH 5MG FOR TOTAL DAILY DOSE OF 7.5MG pantoprazole 40 mg tablet,delayed release (DR/EC) 40 mg PO BID furosemide 20 mg tablet 20 mg PO BID hydroxychloroquine 200 mg tablet 200 mg PO BID valsartan 160 mg tablet 320 mg PO DAILY omega-3 acid ethyl esters 1 gram capsule 2 cap PO BID insulin degludec [Tresiba FlexTouch U-100] 100 unit/mL (3 mL) insulin pen 15 unit subcut QHS Referrals / Follow Up: JEFFY ROTHMAN [Other] - 02/02/25 3:30 pm Sukumar Cabral MD [Med Staff - Active Staff] - 02/16/25 9:30 am (see to establish care for bilateral carotid stenosis) Care Physician,No Primary [Non-Staff] - Disposition Disposition (needs filled in before D/C Order can be placed): Home, Self Care Charges/Coding Visit Charges Inpatient E&M: 23168 Disch Hosp >30min
--- NOTE | 2025-01-28 12:25 | CASEMGMT ---
Patient has order for discharge. RN CM in to discuss needs at discharge. Therapy recommending outpatient therapy at discharge, patient agreeable and prefers [facility]. Patient denies further needs or concerns at discharge. Patient had no further questions or concerns. RN CM received script and referral sent to [facility] with request for [facility] to call patient to schedule appointment.
--- NOTE | 2025-01-28 12:26 | PN.RENAL_ITS ---
Subjective Subjective Follow-up on acute kidney injury on advanced CKD. Patient feels back to baseline, she wants to go home. is at bedside Objective Data Objective Data Vital Signs: Vital Signs Temp Pulse Resp BP Pulse Ox O2 Del Method FiO2 98.6 F 63 14 102/88 H 98 Room Air 95 01/28/25 08:41 01/28/25 08:41 01/28/25 08:41 01/28/25 08:41 01/28/25 08:41 01/28/25 08:41 01/25/25 14:00 Oxygen Delivery Method Room Air Weight: 88.3 kg Body Mass Index (BMI) 34.4 Intake & Output: Intake and Output for Last 24 Hours 01/26/25 01/27/25 01/28/25 23:59 23:59 23:59 Intake Total 2700 / 2900 3500 / 3700 1999 Output Total 1250 / 1250 Balance 2700 / 2900 2250 / 2450 1999 Lab / Micro Data Attestation: I reviewed the patient's lab results. 01/28/25 06:33 01/28/25 06:33 Labs: Laboratory Results - last 24 hr 01/27/25 17:25: POC Glucose 138 H 01/27/25 21:43: POC Glucose 108 H 01/28/25 06:33: WBC 10.2, RBC 2.77 L, Hgb 8.4 L, Hct 26.4 L, MCV 95.3, MCH 30.3, MCHC 31.8 L, RDW Std Deviation 51.0 H, RDW Coeff of Vilma 14.6, Plt Count 213, MPV 9.5, Immature Gran % (Auto) 1.000 H, Neut % (Auto) 77.7 H, Lymph % (Auto) 7.8 L, [place] % (Auto) 11.2 H, Eos % (Auto) 1.9, Baso % (Auto) 0.4, Absolute Neuts (auto) 7.9 H, Absolute Lymphs (auto) 0.79 L, Nucleated RBC % 0, Sodium 136, Potassium 3.9, Chloride 99, Carbon Dioxide 22.1, Anion Gap 14, BUN 49 H, Creatinine 2.95 H , Estim Creat Clear Calc 18.97 L, Est GFR (MDRD) Non-Af 17 L, BUN/Creatinine Ratio 16.5, Glucose 84, Calcium 9.5 01/28/25 07:05: POC Glucose 85 01/28/25 11:17: POC Glucose 151 H Micro: Microbiology 01/25/25 10:22 Urine, Catheterized Urine Culture - Final Escherichia coli Rhythm Strip Rhythm Strip: Sinus Rhythm Rate: 57 Ectopy: None Physical Exam Const alert, oriented x3, no apparent distress and average body habitus General Appearance: well developed Orientation / Consciousness: oriented to person, oriented to place and oriented to time Nutritional Appearance: obese HEENT normocephalic Head and Scalp: atraumatic Mouth: dry mucous membranes Neck no lymphadenopathy Resp no use of accessory muscles and clear to auscultation bilaterally GI non-tender and non-distended Auscultation: normoactive bowel sounds Neuro Sensorium / Orientation: awake and alert Psych cooperative Assessment & Plan Assessment/Plan (1) Acute kidney injury superimposed on chronic kidney disease: PLAN: Her kidney function continues to improve and while she is not back to her baseline, I do not see any reason for her to stay in the hospital for acute kidney injury. She is not acidotic, not hyperkalemic and makes good amount of urine. 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
[2025-01-28 13:37] VITALS: BP 118/44; PULSE 58; RESP 14; TEMP 36.6; O2SAT 96
== END 2025-01-28 13:37 | disposition home or self-care (01) | DRG 689 ==
LOC: ED 09:54 → PCU 11:20
PROVIDERS: Admitting Provider Student in an Organized Health Care Education/Training Program; Emergency Provider Emergency Medicine; Visit Provider Student in an Organized Health Care Education/Training Program
DX: N39.0 Urinary tract infection, site not specified (principal); G93.41 Metabolic encephalopathy; N17.9 Acute kidney failure, unspecified; E87.1 Hypo-osmolality and hyponatremia; N18.4 Chronic kidney disease, stage 4 (severe); E11.21 Type 2 diabetes mellitus with diabetic nephropathy; D64.9 Anemia, unspecified; Z66 Do not resuscitate; M06.9 Rheumatoid arthritis, unspecified; I12.9 Hypertensive chronic kidney disease with stage 1 through stage 4 chronic kidney disease, or unspecified chronic kidney disease; I65.23 Occlusion and stenosis of bilateral carotid arteries; G25.81 Restless legs syndrome; E11.22 Type 2 diabetes mellitus with diabetic chronic kidney disease; Z79.4 Long term (current) use of insulin; K21.9 Gastro-esophageal reflux disease without esophagitis; E11.40 Type 2 diabetes mellitus with diabetic neuropathy, unspecified; E78.5 Hyperlipidemia, unspecified; M79.7 Fibromyalgia; R47.81 Slurred speech; Z79.52 Long term (current) use of systemic steroids; Z87.891 Personal history of nicotine dependence; Z79.899 Other long term (current) drug therapy; Z79.82 Long term (current) use of aspirin; R79.89 Other specified abnormal findings of blood chemistry
CPT/HCPCS: 36415; 70450; 70551; 71045; 76770; 80048; 80061; 81001; 82570; 82962; 84484; 84540; 85025; 85610; 85730; 87077; 87086; 87088; 87186; 92610; 93005; 93306; 93880; 94762; 97116; 97162; 97166; 97530; 97535; 97802; 97803; 99285; Q9957; C8929

== ENCOUNTER 2025-02-01 10:44 | Inpatient (IN) | payer MEDICARE, OTHER, SELFPAY ==
[2025-02-01] VITALS (10 sets, daily range): BP systolic 124–143; BP diastolic 44–70; PULSE 59–110; RESP 14–19; TEMP 36.1–37.1; O2SAT 93–98; BMI 35.0
--- NOTE | 2025-02-01 11:45 | RAD_ITS ---
PROCEDURE: CHEST PA AND LATERAL 02/01/2025 REASON FOR EXAM: AMS/COUGH TECHNIQUE: CHEST PA AND LATERAL COMPARISON: AP chest of 01/25/2025. RAD/Chest PA and Lateral IMPRESSION: The examination is limited by AP portable technique and patient motion, the lat ter particularly on the lateral view. Generalized osteopenia is present. No interval osseous changes seen. Bilateral shoulder surgery again noted. Lungs appear clear of acute disease. No pleural effusion or pneumothorax is noted. The cardiomediastinal silhouette is stable, without evidence of cardiomegaly. Extensive aortic calcification is seen. Reading Location: [place] [id number]
--- NOTE | 2025-02-01 11:45 | EKG12_ITS ---
Test Reason : Blood Pressure : */* mmHG Vent. Rate : 60 BPM Atrial Rate : 60 BPM P-R Int : 166 ms QRS Dur : 88 ms QT Int : 418 ms P-R-T Axes : 50 -4 -4 degrees QTcB Int : 418 ms Normal sinus rhythm Minimal voltage criteria for LVH, may be normal variant ( R in aVL ) Inferior infarct (cited on or before 29-May-2014) Abnormal ECG Confirmed by CHATO SAUCEDO, KATHERINE ([id number]), supervising editor news reel AWA MALDONADO ([id number]) on 02/03/2025 7:36:51 AM Referred By: Florencia Dawson Confirmed By: KATHERINE REIS MD
[2025-02-01 11:56] LABS: Mucous, Urine 0 SEEN /hpf (<or=2+); Red Blood Cells-Urine 0 SEEN /hpf (0-5); Squamous Epithelial Cells - UA 0 SEEN /hpf (5-10)
[2025-02-01 12:01] LABS: Color, Urine Yellow (Yellow); Glucose, Dipstick 250 mg/dl (Normal); Ketone-Dipstick Negative (Negative); Leukocyte Esterase-Dipstick Negative /ul (Negative); Nitrite-Dipstick Negative (Negative); Occult Blood-Urine Negative /ul (Negative); Protein-Dipstick 15 mg/dl (Negative); Specific Gravity, Urine 1.015 (1.002-1.030); Urine Bilirubin Dipstick Negative (Negative)
[2025-02-01 12:06] LABS: Hematocrit 25.5 % (37-47); Hemoglobin 8.5 g/dL (12.0-15.0); Immature Granulocytes Count 0.130 X10^3/uL (0.0-0.0); Mean Corp Hgb Conc 33.3 g/dL (32-36); Mean Corpuscular Volume 93.1 fL (81-99); Mean Platelet Vol. 9.7 fl (6.2-12.0); NRBC Flagged by Analyzer 0 % (0-5); Platelet Count 227 K/mm3 (150-450); RBC Distribution Width CV 14.6 % (11.6-14.6); RBC Distribution Width SD 49.5 fl (35.1-43.9); Red Blood Count 2.74 M/mm3 (4.2-5.4); White Blood Count 14.4 K/mm3 (4.4-11.0)
--- NOTE | 2025-02-01 12:22 | CT_ITS ---
PROCEDURE: BRAIN/HEAD WITHOUT CONTRAST 02/01/2025 REASON FOR EXAM: AMS Weakness and fatigue. Seen last week for urinary tract infection. TECHNIQUE: BRAIN/HEAD WITHOUT CONTRAST Coronal and Sagittal reconstruction series were provided. One or more dose reduction techniques were used (e.g., Automated exposure control, adjustment of the mA and/or kV according to patient size, use of iterative reconstruction technique. RADIATION DOSE SUMMARY: CTDlvol: 45 mGy DLP: 846 mGycm COMPARISON: January 25, 2025 FINDINGS: Brain: There is no evidence of hemorrhage, acute ischemia or mass. No extra- axial fluid collection, midline shift or mass effect. CSF Spaces: Mild generalized cerebral atrophy Sinuses/Mastoids: Mastoid air cells are clear. Sclerosis and thickening is seen involving the right sphenoid sinus as well as bilateral maxillary sinuses. The sinuses are nearly completely opacified with mucous. There appears to have been prior functional endoscopic sinonasal surgery with resection of the ostiomeatal units, middle turbinates, several ethmoid air cells and widening of the sphenoethmoidal recess. Bones: Normal CT/Brain/Head without Contrast IMPRESSION: 1. No evidence of intracranial hemorrhage or acute ischemia. 2. Changes of chronic microvascular ischemia and volume loss. 3. Prior functional endoscopic sinonasal surgery with changes of chronic sinus itis present. Reading Location: [id number]
[2025-02-01 12:42] LABS: Troponin T High Sensitivity 62 ng/L (<=14)
[2025-02-01 12:43] LABS: AST(SGOT) 24 U/L (<=31); Alanine Aminotransfer ALT/SGPT 18 U/L (<=34); Albumin, Serum 4.0 g/dL (3.4-4.8); Alkaline Phosphatase 73 U/L (35-104); Anion Gap 15 (5-15); BUN 61 mg/dL (4-19); BUN/Creat Ratio 17.6 RATIO (10-20); Calcium,Total 10.0 mg/dL (7.6-11.0); Carbon Dioxide 24.4 mmol/L (21.0-32.0); Chloride 84 mmol/L (98-108); Globulin 2.6 g/dL (2.2-4.2); Glucose 151 mg/dL (70-99); Potassium 5.0 mmol/L (3.3-5.1)
[2025-02-01 13:09] LABS: Alcohol, Blood (Medical)-Serum < 10.1 mg/dL (<=10.0)
[2025-02-01] MEDS: 0.9% Normal Saline (1000mL) 1,000 ML 999 ML IV (13:29)
[2025-02-01 13:39] LABS: Barbiturate Urine NEGATIVE (< 200 ng/mL); Benzodiazepine Urine NEGATIVE (< 200 ng/mL); PCP Urine NEGATIVE (< 25 ng/mL); THC Urine NEGATIVE (< 50 ng/mL)
[2025-02-01 15:01] LABS: Troponin T High Sens 2 HR 57 ng/L (<=14)
--- NOTE | 2025-02-01 15:13 | PCM.HP.STD ---
HPI - General General Date of Service: 02/01/25 Chief Complaint: Confusion HPI Narrative RONI ACUNA, is a 69 F who presents with worsening confusion at home. Patient just very tired which is not her normal. Patient was just discharged on 28 January where she had RICHARD. There is concern for with stroke but patient underwent a workup that was unremarkable though she was noted to have bilateral carotid stenosis. Patient was seen by vascular surgery who recommended outpatient evaluation. She was diagnosed with UTI and was discharged with cefdinir. She did have a some hyponatremia but her level was down to 130. , who is at bedside, states that she has been drinking anywhere from 4-5 roughly 1 L size containers of water daily. So she presented to the emergency room with this confusion and had a sodium of 124. Patient received 1 L of IV saline and the hospitalist service was contacted for admission. [facility] Medical History Dyslipidemia Rheumatoid arthritis Obstructive sleep apnea Fibromyalgia Diabetes type 2, uncontrolled Restless leg syndrome Hypertension Stenosis of right carotid artery without cerebral infarction Diabetes Home Medications ?Medication ?Instructions ?Recorded ?Last Taken ?Type amlodipine 10 mg tablet 10 mg PO DAILY 05/28/14 01/24/25 History pramipexole 0.25 mg tablet 0.25 mg PO BID 05/28/14 01/24/25 History prednisone 5 mg tablet 5 mg PO DAILY 05/28/14 01/25/25 History pregabalin 100 mg capsule (Lyrica) 100 mg PO QHS 05/28/14 01/24/25 History aspirin 81 mg chewable tablet 81 mg PO DAILY@0800 05/29/14 01/25/25 History calcium 500 mg-vitamin D3 1,000 500 mg PO DAILY 05/29/14 01/25/25 History unit-vitamin K 40 mcg chewable tablet (Citracal-D3 Soft Chew) ergocalciferol (vitamin D2) 1,250 5,000 unit PO BID 05/29/14 01/25/25 History mcg (50,000 unit) capsule (Vitamin D2) ferrous gluconate 324 mg (37.5 mg 324 mg PO BID 05/29/14 01/25/25 History iron) tablet omega-3 fatty acids-fish oil 340 1 ea PO TID 05/29/14 Unknown History mg-1,000 mg capsule (Fish Oil) allopurinol 100 mg tablet 200 mg PO DAILY 01/25/25 01/24/25 History ascorbic acid (vitamin C) 1,000 mg 1 g PO DAILY 01/25/25 01/25/25 History capsule biotin 10,000 mcg capsule 10,000 mcg PO DAILY 01/25/25 01/25/25 History brimonidine 0.2 % eye drops 1 drp EACH EYE BID 01/25/25 01/25/25 History carvedilol 12.5 mg tablet 12.5 mg PO Q12H 01/25/25 01/25/25 History cetirizine 10 mg tablet 10 mg PO DAILY 01/25/25 01/25/25 History cyanocobalamin (vitamin B-12) 1,000 mcg PO DAILY 01/25/25 01/25/25 History 1,000 mcg capsule dapagliflozin propanediol 10 mg 10 mg PO DAILY 01/25/25 01/25/25 History tablet (Farxiga) dicyclomine 20 mg tablet 20 mg PO Q6H 01/25/25 01/25/25 History ezetimibe 10 mg tablet 10 mg PO DAILY 01/25/25 01/25/25 History folic acid 1 mg tablet 1 mg PO DAILY 01/25/25 01/25/25 History furosemide 20 mg tablet 20 mg PO BID 01/25/25 01/25/25 History hydralazine 100 mg tablet 100 mg PO TID 01/25/25 01/25/25 History hydroxychloroquine 200 mg tablet 200 mg PO BID 01/25/25 01/25/25 History insulin degludec 100 unit/mL (3 15 unit subcut QHS 01/25/25 01/24/25 History mL) subcutaneous pen (Tresiba FlexTouch U-100 insulin) isosorbide mononitrate 120 mg 120 mg PO DAILY 01/25/25 01/25/25 History tablet,extended release 24 hr latanoprost 0.005 % eye drops 1 drp ophthalmic (eye) QHS 01/25/25 01/24/25 History magnesium 250 mg tablet 250 mg PO DAILY 01/25/25 01/25/25 History multivitamin (Daily Value tablet) 1 tab PO DAILY 01/25/25 01/25/25 History omega-3 acid ethyl esters 1 gram 2 cap PO BID 01/25/25 01/25/25 History capsule pantoprazole 40 mg tablet,delayed 40 mg PO BID 01/25/25 01/25/25 History release potassium 99 mg tablet 99 mg PO DAILY 01/25/25 01/25/25 History prednisone 2.5 mg tablet 2.5 mg PO DAILY 01/25/25 01/25/25 History semaglutide 0.25 mg or 0.5 mg (2 0.25 mg subcut QWEEK 01/25/25 01/24/25 History mg/3 mL) subcutaneous pen injector (Ozempic) valsartan 160 mg tablet 320 mg PO DAILY 01/25/25 01/24/25 History cefdinir 300 mg capsule 300 mg PO BID #10 caps 01/28/25 Unknown Rx Allergy/AdvReac Type Severity Reaction Status Date / Time Penicillins Allergy Hives Verified 02/01/25 10:45 Family History no significant family his no significant family history Social History household members: spouse housing: house Smoking Status: Former smoker ROS ROS Narrative Denies any chest pain. No shortness of breath. No lower extremity edema. Has been urinating okay. All review of systems were negative except as mentioned above in the history of present illness and the other review of systems. Vital Signs Vital Signs Vital Signs: 02/01/25 10:44 02/01/25 11:04 02/01/25 11:04 Temperature 36.7 C 37.1 C Temperature Source Temporal Oral Pulse Rate 61 59 L Respiratory Rate 14 18 Respiratory Effort Normal Non-Labored Blood Pressure 125/57 H 124/44 H Blood Pressure Mean 79 70 Pulse Ox 98 94 Oxygen Delivery Method Room Air Room Air 02/01/25 12:00 02/01/25 13:00 02/01/25 14:00 Temperature 36.6 C 36.8 C 36.8 C Temperature Source Oral Oral Oral Pulse Rate 60 66 66 Respiratory Rate 18 17 19 H Respiratory Effort Blood Pressure 128/70 H 124/50 H 124/60 H Blood Pressure Mean 89 74 81 Pulse Ox 96 96 95 Oxygen Delivery Method Room Air Room Air Room Air Physical Exam Const alert, oriented x3 and no apparent distress Constitutional Narrative: Somnolent. Pale. HEENT normocephalic and head/scalp atraumatic Neck no lymphadenopathy Neck Narrative: No thyromegaly Resp normal respiratory effort, no retractions, no use of accessory muscles and clear to auscultation bilaterally Cardio regular rate, regular rhythm, S1 normal heart sound and S2 normal heart sound GI normal to inspection, nondistended, normoactive bowel sounds, soft to palpation, non-tender, non-distended and hepatosplenomegaly Extremity normal to inspection, full ROM and no clubbing, cyanosis or edema Neuro moves all extremities Sensorium / Orientation: awake and alert Results Lab / Micro Data Attestation: I reviewed the patient's lab results. 02/01/25 11:03 02/01/25 11:03 Labs: Laboratory Results - last 24 hr 02/01/25 11:03: WBC 14.4 H, RBC 2.74 L, Hgb 8.5 L, Hct 25.5 L, MCV 93.1, MCH 31.0, MCHC 33.3, RDW Std Deviation 49.5 H, RDW Coeff of Vilma 14.6, Plt Count 227, MPV 9.7, Immature Gran % (Auto) 0.900, Neut % (Auto) 83.1 H, Lymph % (Auto) 6.5 L, [place] % (Auto) 8.8, Eos % (Auto) 0.5, Baso % (Auto) 0.2, Absolute Neuts (auto) 11.9 H, Absolute Lymphs (auto) 0.93, Nucleated RBC % 0, Sodium 124 L, Potassium 5.0, Chloride 84 L, Carbon Dioxide 24.4, Anion Gap 15, BUN 61 H, Creatinine 3.46 H, Est GFR (MDRD) Non-Af 14 L, BUN/Creatinine Ratio 17.6, Glucose 151 H, Lactic Acid 1.4, Calcium 10.0, Total Bilirubin 0.22, AST 24, ALT 18, Alkaline Phosphatase 73, Troponin T High Sens 62 H* D, Total Protein 6.6, Albumin 4.0, Globulin 2.6, Albumin/Globulin Ratio 1.5, TSH 2.290, Urine Color Yellow, Urine Clarity Clear, Urine pH 5.0, Ur Specific [place] 1.015, Urine Protein 15 H, Urine Glucose (UA) 250 H, Urine Ketones Negative, Urine Occult Blood Negative, Urine Nitrite Negative, Urine Bilirubin Negative, Urine Urobilinogen Normal, Ur Leukocyte Esterase Negative, Urine RBC 0 SEEN, Urine WBC 0 SEEN, Ur Squamous Epith Cells 0 SEEN, Urine Bacteria 0 SEEN, Urine Mucus 0 SEEN, Urine Opiates Screen NEGATIVE, U Buprenorphine Qual NEGATIVE, Ur Oxycodone Screen NEGATIVE, Urine Methadone Screen NEGATIVE, Urine Fentanyl Screen NEGATIVE, Ur Barbiturates Screen NEGATIVE, Ur Phencyclidine Scrn NEGATIVE, Ur Amphetamines Screen NEGATIVE, U Benzodiazepines Scrn NEGATIVE, Urine Cocaine Screen NEGATIVE, U Cannabinoids Screen NEGATIVE, Ethyl Alcohol < 10.1 02/01/25 13:55: Troponin T Hi Sens 2 Hr 57 H* EKG Initial EKG: Attestation: I personally reviewed and interpreted this EKG as follows: Prior EKG tracings: available for review EKG Rhythm Intrepretation: Sinus Rhythm Imaging Radiology Impression Chest X-Ray 02/01/25 11:45 IMPRESSION: The examination is limited by AP portable technique and patient motion, the latter particularly on the lateral view. Generalized osteopenia is present. No interval osseous changes seen. Bilateral shoulder surgery again noted. Lungs appear clear of acute disease. No pleural effusion or pneumothorax is noted. The cardiomediastinal silhouette is stable, without evidence of cardiomegaly. Extensive aortic calcification is seen. Reading Location: [facility] 02/01/25 12:22 IMPRESSION: 1. No evidence of intracranial hemorrhage or acute ischemia. 2. Changes of chronic microvascular ischemia and volume loss. 3. Prior functional endoscopic sinonasal surgery with changes of chronic sinusitis present. Reading Location: [id number] Assessment & Plan Assessment/Plan (1) Hyponatremia: PLAN: Patient is described to be drinking a lot of fluids per her . Patient did receive IV fluids in the emergency room and will give another liter of IV fluids. Previously did have urine sodium and urine osmolality checked. Will check a serum osmolality in a.m. as well as check a cortisol. Recheck BMP in the morning. (2) Acute kidney injury superimposed on chronic kidney disease: PLAN: Despite drinking all this fluid, her creatinine has gone up from 2.95-3.46. Will give fluids, hold furosemide and valsartan. Recheck morning. She did have an ultrasound performed on the that was unremarkable. Continues to worsen may need to reconsult nephrology who saw her last admission. (3) Encephalopathy: PLAN: Suspect combination of toxic and metabolic. Toxic potentially being related with her pregabalin on top of the RICHARD. I do not feel that she is actually uremic at this time. Patient is alert and oriented to x 3 however. Will avoid changing medications at this time. (4) Elevated troponin I level: PLAN: Trending down. Were slightly elevated during last admission. Patient denying any chest pain therefore I do not feel this is a non-STEMI. Troponins are likely skewed upwards given her CKD. With them trending down and her having no symptoms at this time. I would not advise any additional workup at this time unless her condition were to change. PLAN: Plan Diabetes mellitus type 2: Insulin-dependent. Continue with basal insulin add sliding scale insulin. Rheumatoid arthritis: Continue with hydroxychloroquine as well prednisone Fibromyalgia: Pregabalin to be held as well as Mirapex due to encephalopathy. VTE prophylaxis with subcu heparin. Charges/Coding Visit Charges Inpatient E&M: 83132 Init Hosp L3
--- NOTE | 2025-02-01 17:21 | EX.ED.DYSGE1 ---
HPI History of Present Illness Chief Complaint: Weakness Narrative Narrative: Patient is a 69-year-old female presenting to the emergency department for fatigue. Patient has a past medical history of hyponatremia, encephalopathy, RICHARD, UTI. accompanies the patient. He states that yesterday she was sleeping more than normal. Was concerned today because she could not stay awake and brought her here for evaluation. Patient only endorses fatigue but states she feels very weak overall. No focal weakness or numbness. Denies any fever, chills, headache, chest pain, shortness of breath, abdominal pain, nausea, vomiting, diarrhea. Denies any urinary symptoms. She was just here about a week ago for a UTI. Denies any trauma or falls. [facility] Medical History Dyslipidemia Rheumatoid arthritis Obstructive sleep apnea Fibromyalgia Diabetes type 2, uncontrolled Restless leg syndrome Hypertension Stenosis of right carotid artery without cerebral infarction Diabetes Home Medications ?Medication ?Instructions ?Recorded ?Last Taken ?Type amlodipine 10 mg tablet 10 mg PO DAILY 05/28/14 01/24/25 History pramipexole 0.25 mg tablet 0.25 mg PO BID 05/28/14 01/24/25 History prednisone 5 mg tablet 5 mg PO DAILY 05/28/14 01/25/25 History pregabalin 100 mg capsule (Lyrica) 100 mg PO QHS 05/28/14 01/24/25 History aspirin 81 mg chewable tablet 81 mg PO DAILY@0800 05/29/14 01/25/25 History calcium 500 mg-vitamin D3 1,000 500 mg PO DAILY 05/29/14 01/25/25 History unit-vitamin K 40 mcg chewable tablet (Citracal-D3 Soft Chew) ergocalciferol (vitamin D2) 1,250 5,000 unit PO BID 05/29/14 01/25/25 History mcg (50,000 unit) capsule (Vitamin D2) ferrous gluconate 324 mg (37.5 mg 324 mg PO BID 05/29/14 01/25/25 History iron) tablet omega-3 fatty acids-fish oil 340 1 ea PO TID 05/29/14 Unknown History mg-1,000 mg capsule (Fish Oil) allopurinol 100 mg tablet 200 mg PO DAILY 01/25/25 01/24/25 History ascorbic acid (vitamin C) 1,000 mg 1 g PO DAILY 01/25/25 01/25/25 History capsule biotin 10,000 mcg capsule 10,000 mcg PO DAILY 01/25/25 01/25/25 History brimonidine 0.2 % eye drops 1 drp EACH EYE BID 01/25/25 01/25/25 History carvedilol 12.5 mg tablet 12.5 mg PO Q12H 01/25/25 01/25/25 History cetirizine 10 mg tablet 10 mg PO DAILY 01/25/25 01/25/25 History cyanocobalamin (vitamin B-12) 1,000 mcg PO DAILY 01/25/25 01/25/25 History 1,000 mcg capsule dapagliflozin propanediol 10 mg 10 mg PO DAILY 01/25/25 01/25/25 History tablet (Farxiga) dicyclomine 20 mg tablet 20 mg PO Q6H 01/25/25 01/25/25 History ezetimibe 10 mg tablet 10 mg PO DAILY 01/25/25 01/25/25 History folic acid 1 mg tablet 1 mg PO DAILY 01/25/25 01/25/25 History furosemide 20 mg tablet 20 mg PO BID 01/25/25 01/25/25 History hydralazine 100 mg tablet 100 mg PO TID 01/25/25 01/25/25 History hydroxychloroquine 200 mg tablet 200 mg PO BID 01/25/25 01/25/25 History insulin degludec 100 unit/mL (3 15 unit subcut QHS 01/25/25 01/24/25 History mL) subcutaneous pen (Tresiba FlexTouch U-100 insulin) isosorbide mononitrate 120 mg 120 mg PO DAILY 01/25/25 01/25/25 History tablet,extended release 24 hr latanoprost 0.005 % eye drops 1 drp ophthalmic (eye) QHS 01/25/25 01/24/25 History magnesium 250 mg tablet 250 mg PO DAILY 01/25/25 01/25/25 History multivitamin (Daily Value tablet) 1 tab PO DAILY 01/25/25 01/25/25 History omega-3 acid ethyl esters 1 gram 2 cap PO BID 01/25/25 01/25/25 History capsule pantoprazole 40 mg tablet,delayed 40 mg PO BID 01/25/25 01/25/25 History release potassium 99 mg tablet 99 mg PO DAILY 01/25/25 01/25/25 History prednisone 2.5 mg tablet 2.5 mg PO DAILY 01/25/25 01/25/25 History semaglutide 0.25 mg or 0.5 mg (2 0.25 mg subcut QWEEK 01/25/25 01/24/25 History mg/3 mL) subcutaneous pen injector (Ozempic) valsartan 160 mg tablet 320 mg PO DAILY 01/25/25 01/24/25 History cefdinir 300 mg capsule 300 mg PO BID #10 caps 01/28/25 Unknown Rx Allergy/AdvReac Type Severity Reaction Status Date / Time Penicillins Allergy Hives Verified 02/01/25 10:45 Social History household members: spouse housing: house Smoking Status: Former smoker ROS ROS ED ROS Narrative Please see HPI EXAM Physical Exam Narrative Exam Narrative: Vital signs: Reviewed General: Alert and oriented. No acute distress. Chronically unwell appearing. Pale. HEENT: Head is normocephalic and atraumatic, sinuses nontender, pupils equal round and reactive. Nares are patent. Oropharynx and throat exams normal. Neck: Supple without lymphadenopathy nontender Cardiovascular: Regular rate and rhythm, no murmurs. No rubs or gallops. Normal S1 and S2 Respiratory: Clear to auscultation bilaterally. No wheezes, rales, rhonchi Abdominal: Soft and tender. Normal bowel sounds. No guarding or rebound. Nonsurgical abdomen Extremities: No tenderness. No bruising. Normal range of motion. Normal sensation. Skin: No rash or redness. Neurological: Cranial nerves II through XII are grossly intact. Normal strength and sensation. Normal cerebellar function The rest of the physical exam is unremarkable Const Vital Signs: 02/01/25 10:44 02/01/25 11:04 02/01/25 11:04 Temperature 98.1 F 98.7 F Temperature Source Temporal Oral Pulse Rate 61 59 L Respiratory Rate 14 18 Respiratory Effort Normal Non-Labored Blood Pressure 125/57 H 124/44 H Blood Pressure Mean 79 70 Pulse Ox 98 94 Oxygen Delivery Method Room Air Room Air 02/01/25 12:00 02/01/25 13:00 02/01/25 14:00 Temperature 98 F 98.3 F 98.3 F Temperature Source Oral Oral Oral Pulse Rate 60 66 66 Respiratory Rate 18 17 19 H Respiratory Effort Blood Pressure 128/70 H 124/50 H 124/60 H Blood Pressure Mean 89 74 81 Pulse Ox 96 96 95 Oxygen Delivery Method Room Air Room Air Room Air MDM MDM MDM Narrative Medical decision making narrative: Patient is a 69-year-old female presenting to the emergency department for fatigue. Patient was seen and examined. Vitals are stable. Patient resting bed comfortably no acute distress. Patient is afebrile. Differential includes but is not limited to: Anemia, electrolyte disturbance, UTI, pneumonia, ACS CBC with a mild leukocytosis of 14.4 and chronic anemia of 8.5. BMP with hyponatremia of 124. Patient started on fluids. She does appear dry on exam. Baseline kidney function. Normal lactate. Urinalysis with no evidence of infection. Urine drug screen and alcohol are negative. CT brain with no acute intracranial hemorrhage or ischemia noted. Chest x-ray with no opacities concerning for pneumonia. Viral swab negative. TSH within normal limits. Troponin initially elevated at 62, second decreased to 57. Patient likely experiencing fatigue from her hyponatremia, recommended admission for further evaluation and treatment. Patient admitted to hospitalist, Dr. Law. History & Record Review Discussion w/independent historian: Patient and Family Additional record(s) reviewed:: Prior inpatient record Lab Data Attestation: I reviewed the patient's lab results. Labs: Laboratory Results - last 24 hr 02/01/25 02/01/25 11:03 13:55 WBC 14.4 H RBC 2.74 L Hgb 8.5 L Hct 25.5 L MCV 93.1 MCH 31.0 MCHC 33.3 RDW Std Deviation 49.5 H RDW Coeff of Vilma 14.6 Plt Count 227 MPV 9.7 Immature Gran % (Auto) 0.900 Neut % (Auto) 83.1 H Lymph % (Auto) 6.5 L [place] % (Auto) 8.8 Eos % (Auto) 0.5 Baso % (Auto) 0.2 Absolute Neuts (auto) 11.9 H Absolute Lymphs (auto) 0.93 Nucleated RBC % 0 Sodium 124 L Potassium 5.0 Chloride 84 L Carbon Dioxide 24.4 Anion Gap 15 BUN 61 H Creatinine 3.46 H Est GFR (MDRD) Non-Af 14 L BUN/Creatinine Ratio 17.6 Glucose 151 H Lactic Acid 1.4 Calcium 10.0 Total Bilirubin 0.22 AST 24 ALT 18 Alkaline Phosphatase 73 Troponin T High Sens 62 H* D Troponin T Hi Sens 2 Hr 57 H* Total Protein 6.6 Albumin 4.0 Globulin 2.6 Albumin/Globulin Ratio 1.5 TSH 2.290 Urine Color Yellow Urine Clarity Clear Urine pH 5.0 Ur Specific [place] 1.015 Urine Protein 15 H Urine Glucose (UA) 250 H Urine Ketones Negative Urine Occult Blood Negative Urine Nitrite Negative Urine Bilirubin Negative Urine Urobilinogen Normal Ur Leukocyte Esterase Negative Urine RBC 0 SEEN Urine WBC 0 SEEN Ur Squamous Epith Cells 0 SEEN Urine Bacteria 0 SEEN Urine Mucus 0 SEEN Urine Opiates Screen NEGATIVE U Buprenorphine Qual NEGATIVE Ur Oxycodone Screen NEGATIVE Urine Methadone Screen NEGATIVE Urine Fentanyl Screen NEGATIVE Ur Barbiturates Screen NEGATIVE Ur Phencyclidine Scrn NEGATIVE Ur Amphetamines Screen NEGATIVE U Benzodiazepines Scrn NEGATIVE Urine Cocaine Screen NEGATIVE U Cannabinoids Screen NEGATIVE Ethyl Alcohol < 10.1 Radiography Chest X-Ray - ED: 2 View, Read by ED Physician, No Acute Disease and No Infiltrates Diagnostic Testing: Clinical Impression(s) from Imaging Studies Chest X-Ray 02/01/25 11:45 IMPRESSION: The examination is limited by AP portable technique and patient motion, the latter particularly on the lateral view. Generalized osteopenia is present. No interval osseous changes seen. Bilateral shoulder surgery again noted. Lungs appear clear of acute disease. No pleural effusion or pneumothorax is noted. The cardiomediastinal silhouette is stable, without evidence of cardiomegaly. Extensive aortic calcification is seen. [facility] [address] 02/01/25 12:22 IMPRESSION: 1. No evidence of intracranial hemorrhage or acute ischemia. 2. Changes of chronic microvascular ischemia and volume loss. 3. Prior functional endoscopic sinonasal surgery with changes of chronic sinusitis present. Reading Location: [id number] Discharge Plan Disposition Disposition: Acute Care Hospital [facility] Discharge Date/Time: 02/01/25 15:40
[2025-02-01] MEDS: 0.9% Normal Saline (1000mL) 1,000 ML 150 ML IV (20:26)
[2025-02-01] MEDS: Latanoprost 0.005% 1 Bottle 1 DRP OPHTHALMIC (22:04)
[2025-02-01] MEDS: Heparin Injection (Vial) 5,000 UNIT/ML VIAL 5000 UNIT SC (22:05)
[2025-02-01] MEDS: Insulin Glargine-YFGN 100 UNIT/ML Pen 15 UNIT SC (22:17)
[2025-02-02] VITALS (8 sets, daily range): BP systolic 134–152; BP diastolic 48–115; PULSE 60–74; RESP 14–18; TEMP 36.1–36.7; O2SAT 95–97
[2025-02-02 07:05] LABS: Hematocrit 26.8 % (37-47); Hemoglobin 8.8 g/dL (12.0-15.0); Immature Granulocytes Count 0.120 X10^3/uL (0.0-0.0); Mean Corp Hgb Conc 32.8 g/dL (32-36); Mean Corpuscular Volume 93.1 fL (81-99); Mean Platelet Vol. 9.2 fl (6.2-12.0); NRBC Flagged by Analyzer 0 % (0-5); Platelet Count 226 K/mm3 (150-450); RBC Distribution Width CV 14.3 % (11.6-14.6); RBC Distribution Width SD 48.1 fl (35.1-43.9); Red Blood Count 2.88 M/mm3 (4.2-5.4); White Blood Count 11.4 K/mm3 (4.4-11.0)
[2025-02-02 07:19] LABS: Anion Gap 14 (5-15); BUN 59 mg/dL (4-19); BUN/Creat Ratio 19.6 RATIO (10-20); CORTISOL AM 5.54 ug/dL (6.02-18.40); Calcium,Total 9.6 mg/dL (7.6-11.0); Carbon Dioxide 24.4 mmol/L (21.0-32.0); Chloride 91 mmol/L (98-108); Estimated Creatinine Clearance 18.88 ml/min (50-250); Glucose 96 mg/dL (70-99); Potassium 4.3 mmol/L (3.3-5.1)
[2025-02-02 07:22] LABS: Osmolality, Serum 287 mOsm/KG (280-301)
[2025-02-02] MEDS: Latanoprost 0.005% 1 Bottle 1 DRP OPHTHALMIC (09:16)
[2025-02-02] MEDS: Heparin Injection (Vial) 5,000 UNIT/ML VIAL 5000 UNIT SC ×2 (09:19→21:20)
--- NOTE | 2025-02-02 11:24 | PCM.CONS.R ---
Assessment & Plan Assessment/Plan (1) Hyponatremia: (2) Acute kidney injury superimposed on chronic kidney disease: (3) CKD (chronic kidney disease) stage 4, GFR 15-29 ml/min: PLAN: Plan Patient has known history of chronic kidney disease from diabetic nephropathy stage IV (had been following with Dr. Yash Salguero in [place], [place]), during last hospitalization serum creatinine peak 3.65 and by time of hospital discharge kidney function improved, creatinine was 2.95. Yesterday in the ER serum creatinine 3.46 and today creatinine 2.99. Baseline creatinine possibly around mid 2 range. Overall kidney function stable and improved. Sodium yesterday 124 and today her sodium is 129. This is possibly from recent increased water and fluid intake. It was discussed with patient and her importance of keeping daily total fluid intake to around 1.5 to no more than 2 L/day. Patient does not need frequent serum sodium checks. She was encouraged to increase protein/solute intake. Today volume status appears near euvolemic. Lasix is on hold and we will continue holding that for another day. No need for further IV fluids or hypertonic saline. TSH normal, serum osmolality 287. Basic metabolic ordered for a.m. Further orders forthcoming as hospitalization evolves, thank you for allowing us participate in the care of Ms. Acuna. Assessment and plan reviewed with Dr. Pearson. HPI Consult Data Date of Consult: 02/02/25 HPI Narrative HPI Narrative: RONI ACUNA, is a 69 F who presented to the emergency room yesterday as noticed her to be confused. Workup in the emergency room showed a sodium of 124, serum creatinine 3.46. Patient was admitted for further evaluation and treatment. Patient has past medical history significant for chronic kidney disease stage IV secondary to diabetic nephropathy had been following with Dr. Yash Salguero (in [facility]), hypertension, rheumatoid arthritis. Patient is known to our service as she was recently admitted to [facility] last week for UTI, RICHARD and strokelike symptoms in which workup unremarkable for CVA but noted to have bilateral carotid stenosis. Patient was discharged to home on January 28. During last hospitalization serum creatinine peak 3.65 (this was on admission) and by time of hospital discharge serum creatinine 2.95. Today her creatinine is 2.99. During last hospitalization sodium 130-136. Patient reports after last hospitalization she was drinking at least 4-6 bottles of water in addition to coffee and juices. Denies any nausea or vomiting. No diarrhea. at bedside. [facility] Medical History Dyslipidemia Rheumatoid arthritis Obstructive sleep apnea Fibromyalgia Diabetes type 2, uncontrolled Restless leg syndrome Hypertension Stenosis of right carotid artery without cerebral infarction Diabetes Home Medications ?Medication ?Instructions ?Recorded ?Last Taken ?Type amlodipine 10 mg tablet 10 mg PO DAILY 05/28/14 01/24/25 History pramipexole 0.25 mg tablet 0.25 mg PO BID 05/28/14 01/24/25 History prednisone 5 mg tablet 5 mg PO DAILY 05/28/14 01/25/25 History pregabalin 100 mg capsule (Lyrica) 100 mg PO QHS 05/28/14 01/24/25 History aspirin 81 mg chewable tablet 81 mg PO DAILY@0800 05/29/14 01/25/25 History calcium 500 mg-vitamin D3 1,000 500 mg PO DAILY 05/29/14 01/25/25 History unit-vitamin K 40 mcg chewable tablet (Citracal-D3 Soft Chew) ergocalciferol (vitamin D2) 1,250 5,000 unit PO BID 05/29/14 01/25/25 History mcg (50,000 unit) capsule (Vitamin D2) ferrous gluconate 324 mg (37.5 mg 324 mg PO BID 05/29/14 01/25/25 History iron) tablet omega-3 fatty acids-fish oil 340 1 ea PO TID 05/29/14 Unknown History mg-1,000 mg capsule (Fish Oil) allopurinol 100 mg tablet 200 mg PO DAILY 01/25/25 01/24/25 History ascorbic acid (vitamin C) 1,000 mg 1 g PO DAILY 01/25/25 01/25/25 History capsule biotin 10,000 mcg capsule 10,000 mcg PO DAILY 01/25/25 01/25/25 History brimonidine 0.2 % eye drops 1 drp EACH EYE BID 01/25/25 01/25/25 History carvedilol 12.5 mg tablet 12.5 mg PO Q12H 01/25/25 01/25/25 History cetirizine 10 mg tablet 10 mg PO DAILY 01/25/25 01/25/25 History cyanocobalamin (vitamin B-12) 1,000 mcg PO DAILY 01/25/25 01/25/25 History 1,000 mcg capsule dapagliflozin propanediol 10 mg 10 mg PO DAILY 01/25/25 01/25/25 History tablet (Farxiga) dicyclomine 20 mg tablet 20 mg PO Q6H 01/25/25 01/25/25 History ezetimibe 10 mg tablet 10 mg PO DAILY 01/25/25 01/25/25 History folic acid 1 mg tablet 1 mg PO DAILY 01/25/25 01/25/25 History furosemide 20 mg tablet 20 mg PO BID 01/25/25 01/25/25 History hydralazine 100 mg tablet 100 mg PO TID 01/25/25 01/25/25 History hydroxychloroquine 200 mg tablet 200 mg PO BID 01/25/25 01/25/25 History insulin degludec 100 unit/mL (3 15 unit subcut QHS 01/25/25 01/24/25 History mL) subcutaneous pen ([employer] FlexTouch U-100 insulin) isosorbide mononitrate 120 mg 120 mg PO DAILY 01/25/25 01/25/25 History tablet,extended release 24 hr latanoprost 0.005 % eye drops 1 drp ophthalmic (eye) QHS 01/25/25 01/24/25 History magnesium 250 mg tablet 250 mg PO DAILY 01/25/25 01/25/25 History multivitamin (Daily Value tablet) 1 tab PO DAILY 01/25/25 01/25/25 History omega-3 acid ethyl esters 1 gram 2 cap PO BID 01/25/25 01/25/25 History capsule pantoprazole 40 mg tablet,delayed 40 mg PO BID 01/25/25 01/25/25 History release potassium 99 mg tablet 99 mg PO DAILY 01/25/25 01/25/25 History prednisone 2.5 mg tablet 2.5 mg PO DAILY 01/25/25 01/25/25 History semaglutide 0.25 mg or 0.5 mg (2 0.25 mg subcut QWEEK 01/25/25 01/24/25 History mg/3 mL) subcutaneous pen injector (Ozempic) valsartan 160 mg tablet 320 mg PO DAILY 01/25/25 01/24/25 History cefdinir 300 mg capsule 300 mg PO BID #10 caps 01/28/25 Unknown Rx Allergy/AdvReac Type Severity Reaction Status Date / Time Penicillins Allergy Hives Verified 02/01/25 10:45 Family History no significant family his Social History household members: spouse housing: house Smoking Status: Former smoker ROS ROS Narrative as in HPI Physical Exam Narrative alert and oriented, no acute distress S1 S2 RRR coarse lung sounds, on high flow O2 abdomen soft, non-tender no pitting edema Lab / Micro Data 02/02/25 05:44 02/02/25 05:44 Labs: Laboratory Results - last 24 hr 02/01/25 11:03: WBC 14.4 H, RBC 2.74 L, Hgb 8.5 L, Hct 25.5 L, MCV 93.1, MCH 31.0, MCHC 33.3, RDW Std Deviation 49.5 H, RDW Coeff of Vilma 14.6, Plt Count 227, MPV 9.7, Immature Gran % (Auto) 0.900, Neut % (Auto) 83.1 H, Lymph % (Auto) 6.5 L, [place] % (Auto) 8.8, Eos % (Auto) 0.5, Baso % (Auto) 0.2, Absolute Neuts (auto) 11.9 H, Absolute Lymphs (auto) 0.93, Nucleated RBC % 0, Sodium 124 L, Potassium 5.0, Chloride 84 L, Carbon Dioxide 24.4, Anion Gap 15, BUN 61 H, Creatinine 3.46 H, Est GFR (MDRD) Non-Af 14 L, BUN/Creatinine Ratio 17.6, Glucose 151 H, Lactic Acid 1.4, Calcium 10.0, Total Bilirubin 0.22, AST 24, ALT 18, Alkaline Phosphatase 73, Troponin T High Sens 62 H* D, Total Protein 6.6, Albumin 4.0, Globulin 2.6, Albumin/Globulin Ratio 1.5, TSH 2.290, Urine Color Yellow, Urine Clarity Clear, Urine pH 5.0, Ur Specific [place] 1.015, Urine Protein 15 H, Urine Glucose (UA) 250 H, Urine Ketones Negative, Urine Occult Blood Negative, Urine Nitrite Negative, Urine Bilirubin Negative, Urine Urobilinogen Normal, Ur Leukocyte Esterase Negative, Urine RBC 0 SEEN, Urine WBC 0 SEEN, Ur Squamous Epith Cells 0 SEEN, Urine Bacteria 0 SEEN, Urine Mucus 0 SEEN, Urine Opiates Screen NEGATIVE, U Buprenorphine Qual NEGATIVE, Ur Oxycodone Screen NEGATIVE, Urine Methadone Screen NEGATIVE, Urine Fentanyl Screen NEGATIVE, Ur Barbiturates Screen NEGATIVE, Ur Phencyclidine Scrn NEGATIVE, Ur Amphetamines Screen NEGATIVE, U Benzodiazepines Scrn NEGATIVE, Urine Cocaine Screen NEGATIVE, U Cannabinoids Screen NEGATIVE, Ethyl Alcohol < 10.1 02/01/25 13:55: Troponin T Hi Sens 2 Hr 57 H* 02/01/25 17:44: POC Glucose 143 H 02/01/25 22:17: POC Glucose 130 H 02/02/25 05:44: WBC 11.4 H, RBC 2.88 L, Hgb 8.8 L, Hct 26.8 L, MCV 93.1, MCH 30.6, MCHC 32.8, RDW Std Deviation 48.1 H, RDW Coeff of Vilma 14.3, Plt Count 226, MPV 9.2, Immature Gran % (Auto) 1.100 H, Neut % (Auto) 75.5 H, Lymph % (Auto) 9.9 L, [place] % (Auto) 11.2 H, Eos % (Auto) 1.9, Baso % (Auto) 0.4, Absolute Neuts (auto) 8.6 H, Absolute Lymphs (auto) 1.12, Nucleated RBC % 0, Sodium 129 L, Potassium 4.3, Chloride 91 L, Carbon Dioxide 24.4, Anion Gap 14, BUN 59 H, Creatinine 2.99 H, Estim Creat Clear Calc 18.88 L, Est GFR (MDRD) Non-Af 16 L, BUN/Creatinine Ratio 19.6, Glucose 96, Serum Osmolality 287, Calcium 9.6, Cortisol AM Sample 5.54 L 02/02/25 06:05: POC Glucose 108 H Micro: Microbiology 02/01/25 14:30 Mucosa - Nasopharyngeal SARS-CoV-2, Influenza & RSV (PCR) - Final Imaging Radiology Impression Chest X-Ray 02/01/25 11:45 IMPRESSION: The examination is limited by AP portable technique and patient motion, the latter particularly on the lateral view. Generalized osteopenia is present. No interval osseous changes seen. Bilateral shoulder surgery again noted. Lungs appear clear of acute disease. No pleural effusion or pneumothorax is noted. The cardiomediastinal silhouette is stable, without evidence of cardiomegaly. Extensive aortic calcification is seen. Reading Location: [facility] 02/01/25 12:22 IMPRESSION: 1. No evidence of intracranial hemorrhage or acute ischemia. 2. Changes of chronic microvascular ischemia and volume loss. 3. Prior functional endoscopic sinonasal surgery with changes of chronic sinusitis present. Reading Location: [id number]
--- NOTE | 2025-02-02 16:18 | PN.HOSP_ITS ---
Reason for Visit Chief Complaint: Confusion Subjective Subjective Patient was seen and examined today, I had nephrology see the patient in consultation, it appears that the patient has been drinking quite a bit of water at home according to the . Patient's creatinine today was improved at 2.99, sodium was improved at 129. I will obtain another BMP on the patient tomorrow as well as a CBC, patient's iron level drawn in November of this year was low, I will repeat serum iron, TIBC, and ferritin. Patient does not appear confused today, patient's was in the room at the time of my exam today and states that the patient's mental status appears to be at baseline. Objective Data Objective Data Vital Signs: Vital Signs Temp Pulse Resp BP Pulse Ox O2 Del Method 97.5 F L 74 16 134/115 H 97 Room Air 02/02/25 14:21 02/02/25 14:22 02/02/25 14:21 02/02/25 14:22 02/02/25 14:21 02/02/25 14:21 Oxygen Delivery Method Room Air Weight: 89.811 kg Body Mass Index (BMI) 35.0 Intake & Output: Intake and Output for Last 24 Hours 01/31/25 02/01/25 02/02/25 23:59 23:59 23:59 Intake Total 1300 / 1300 1350 / 1350 Output Total 550 / 550 Balance 1300 / 1300 800 / 800 Lab / Micro Data 02/03/25 05:42 02/03/25 05:42 Labs: Laboratory Results - last 24 hr 02/01/25 17:44: POC Glucose 143 H 02/01/25 22:17: POC Glucose 130 H 02/02/25 05:44: WBC 11.4 H, RBC 2.88 L, Hgb 8.8 L, Hct 26.8 L, MCV 93.1, MCH 30.6, MCHC 32.8, RDW Std Deviation 48.1 H, RDW Coeff of Vilma 14.3, Plt Count 226, MPV 9.2, Immature Gran % (Auto) 1.100 H, Neut % (Auto) 75.5 H, Lymph % (Auto) 9.9 L, [place] % (Auto) 11.2 H, Eos % (Auto) 1.9, Baso % (Auto) 0.4, Absolute Neuts (auto) 8.6 H, Absolute Lymphs (auto) 1.12, Nucleated RBC % 0, Sodium 129 L, Potassium 4.3, Chloride 91 L, Carbon Dioxide 24.4, Anion Gap 14, BUN 59 H, C reatinine 2.99 H, Estim Creat Clear Calc 18.88 L, Est GFR (MDRD) Non-Af 16 L, BUN/Creatinine Ratio 19.6, Glucose 96, Serum Osmolality 287, Calcium 9.6, C ortisol AM Sample 5.54 L 02/02/25 06:05: POC Glucose 108 H 02/02/25 11:12: POC Glucose 119 H Micro: Microbiology 02/01/25 14:30 Mucosa - Nasopharyngeal SARS-CoV-2, Influenza & RSV (PCR) - Final Physical Exam Const alert, oriented x3, no apparent distress and healthy appearing General Appearance: cooperative, well kempt and well developed Orientation / Consciousness: awake, oriented to person, oriented to place and oriented to time HEENT normocephalic, head/scalp atraumatic and moist oral mucous membranes Eyes PERRL, EOMs intact bilaterally and conjunctivae normal Neck supple, no JVD, thyroid normal and no carotid bruits General: trachea midline Resp normal respiratory effort, no retractions, no use of accessory muscles and clear to auscultation bilaterally Auscultation: Negative for rales, rhonchi or wheezes Cardio regular rate, regular rhythm, S1 normal heart sound, S2 normal heart sound, no murmurs, no rub and no gallops GI normal to inspection, nondistended, normoactive bowel sounds, soft to palpation, non-tender and non-distended Extremity no clubbing, cyanosis or edema Skin no rashes or lesions noted General Skin Exam: no breakdown Neuro oriented x3, CN's II-XII intact bilaterally, no focal motor deficits and no sensory deficits noted Sensorium / Orientation: awake and alert Speech: speech normal Psych affect normal Assessment & Plan Assessment/Plan (1) Hyponatremia: PLAN: Plan 1. Hyponatremia-secondary to excessive water drinking, patient is on a fluid restriction currently, she is being seen by nephrology, BMP will be monitored #2 acute kidney injury on a backdrop of chronic kidney disease stage IV-BMP will be monitored, nephrology is participating in her care #3 metabolic encephalopathy-this appears to be resolved at this time, possibly secondary to hyponatremia #4 type 2 diabetes-fingerstick blood sugars will be monitored, sliding scale insulin will be administered as needed #5 elevated troponin-I do not think this is significant Total clinical time spent by myself addressing the patient's medical issues, reviewing all of her data, and collaborating with patient's care team: 35 minutes Charges/Coding Visit Charges Inpatient E&M: 71005 Subs Hosp L2
[2025-02-02] MEDS: 0.9% Saline Lock 10 ML Syringe IV (20:18)
[2025-02-02] MEDS: BRIMONIDINE 0.2% 5ML BOTTLE 1 DRP EACH EYE (21:27)
[2025-02-02] MEDS: Insulin Glargine-YFGN 100 UNIT/ML Pen 15 UNIT SC (21:30)
[2025-02-03 03:40] VITALS: BP 147/49; PULSE 63; RESP 18; TEMP 36.7; O2SAT 94
[2025-02-03 06:10] VITALS: BP 140/73; PULSE 63; RESP 16; TEMP 36.5; O2SAT 97
[2025-02-03 06:18] VITALS: BP 140/73; PULSE 63
[2025-02-03 06:18] LABS: Hematocrit 25.6 % (37-47); Hemoglobin 8.3 g/dL (12.0-15.0)
[2025-02-03 07:04] LABS: Anion Gap 13 (5-15); BUN 55 mg/dL (4-19); BUN/Creat Ratio 19.3 RATIO (10-20); Calcium,Total 9.0 mg/dL (7.6-11.0); Carbon Dioxide 22.8 mmol/L (21.0-32.0); Chloride 92 mmol/L (98-108); Estimated Creatinine Clearance 19.81 ml/min (50-250); Glucose 96 mg/dL (70-99); Iron 41 ug/dL (50-170); Iron Binding Capacity,Unsat 187 ug/dL (228-428); Potassium 4.3 mmol/L (3.3-5.1)
[2025-02-03 07:53] LABS: Iron Binding Capacity,Total 228 ug/dL (250-450)
[2025-02-03 08:44] VITALS: BP 144/81; PULSE 61; RESP 14; TEMP 36.6; O2SAT 98
[2025-02-03] MEDS: BRIMONIDINE 0.2% 5ML BOTTLE 1 DRP EACH EYE (08:56)
[2025-02-03] MEDS: Heparin Injection (Vial) 5,000 UNIT/ML VIAL 5000 UNIT SC (10:08)
--- NOTE | 2025-02-03 11:05 | CASEMGMT ---
PANDA PATEL chart review: Patient was admitted 01/25-01/28/25 for Hyponatremia, RICHARD, UTI, slurring of speech. See assessment from 01/26/25. Patient was discharged to home with script to [facility], family support, and follow-up plans in place. Patient returned to [facility] ED on for weakness. Patient was admitted for hyponatremia. Per burglar alarm superintendent, patient had increased fluids at home which may have cause hyponatremia and suggested 1.5-2.0 liters per day. PANDA PATEL in to discuss needs at discharge and readmission. Patient states she was taking medications at home. Patient had returned to [facility] prior to follow-up appts. Patient's at bedside and states he will schedule follow-up appts as well as outpatient therapy at discharge. Patient and deny further needs or concerns at discharge. Patient to return home with previous outpatient therapy order, family support, and follow-up plans in place.
--- NOTE | 2025-02-03 11:09 | PN.RENAL_ITS ---
Subjective Subjective Follow-up on CKD, hyponatremia. Patient feels fine, wants to go home. She is concerned that with fluid restriction her urine output will drop and she might develop urinary tract infection Objective Data Objective Data Vital Signs: Vital Signs Temp Pulse Resp BP Pulse Ox O2 Del Method 97.8 F 61 14 144/81 H 98 Room Air 02/03/25 08:44 02/03/25 08:44 02/03/25 08:44 02/03/25 08:44 02/03/25 08:44 02/03/25 08:45 Oxygen Delivery Method Room Air Weight: 89.811 kg Body Mass Index (BMI) 35.0 Intake & Output: Intake and Output for Last 24 Hours 02/01/25 02/02/25 02/03/25 23:59 23:59 23:59 Intake Total 1300 / 1300 1850 / 1850 300 / 300 Output Total 550 / 550 Balance 1300 / 1300 1300 / 1300 300 / 300 Lab / Micro Data Attestation: I reviewed the patient's lab results. 02/03/25 05:42 02/03/25 05:42 Labs: Laboratory Results - last 24 hr 02/02/25 11:12: POC Glucose 119 H 02/02/25 16:42: POC Glucose 155 H 02/02/25 21:30: POC Glucose 139 H 02/03/25 05:42: Hgb 8.3 L, Hct 25.6 L, Sodium 128 L, Potassium 4.3, Chloride 92 L, Carbon Dioxide 22.8, Anion Gap 13, BUN 55 H, Creatinine 2.85 H, Estim Creat Clear Calc 19.81 L, Est GFR (MDRD) Non-Af 17 L, BUN/Creatinine Ratio 19.3, Glucose 96, Calcium 9.0, Iron 41 L, TIBC 228 L, Iron Saturation 18.0, U nsaturated IBC 187 L 02/03/25 06:16: POC Glucose 107 H Micro: Microbiology 02/01/25 14:30 Mucosa - Nasopharyngeal SARS-CoV-2, Influenza & RSV (PCR) - Final Physical Exam Const alert, oriented x3 and no apparent distress General Appearance: well developed Orientation / Consciousness: oriented to person, oriented to place and oriented to time HEENT normocephalic Head and Scalp: atraumatic Mouth: dry mucous membranes Neck no lymphadenopathy Resp no use of accessory muscles and clear to auscultation bilaterally Cardio regular rate GI non-tender and non-distended Auscultation: normoactive bowel sounds Extremity Extremity Narrative: No edema Psych cooperative Assessment & Plan Assessment/Plan (1) CKD (chronic kidney disease) stage 4, GFR 15-29 ml/min: PLAN: Creatinine is stable, no acidosis, potassium is normal. (2) Hyponatremia: PLAN: Sodium is better, OK to d/c. Fluid restriction at home 1500
--- NOTE | 2025-02-03 11:55 | DCINST_ITS ---
Discharge Instructions DC O2, CPAP, BIPAP needs Home O2 Discharge instructions: No Dressing / Incision Discharge Activity: Return to Normal Activity Weight Bearing Status: Full weight bearing Follow Up Care Test Results: Test results from this visit will be discussed in further detail at your follow- up appointment, if applicable. Discharge Plan Admission Admit Date/Time: 02/01/25 15:04 Primary Reason for Your Visit: Hyponatremia Attending Provider: Renato Vinson Primary Care Provider: JEFFY ROTHMAN Consulting Providers: Sukumar Law; Judie Camp Discharge Orders/Prescriptions Prescriptions: Continued prednisone 5 MG tablet 5 mg PO DAILY Patient Comments: Rheumatoid arthritis Rx Instructions: TAKE WITH 2.5MG FOR TOTAL DAILY DOSE OF 7.5MG amlodipine 10 MG tablet 10 mg PO DAILY Patient Comments: Blood pressure pramipexole 0.25 MG tablet 0.25 mg PO BID Patient Comments: Restless legs aspirin 81 MG tablet,chewable 81 mg PO DAILY@0800 Patient Comments: Heart health ergocalciferol (vitamin D2) [Vitamin D2] 50,000 UNIT capsule 5,000 unit PO BID Patient Comments: Supplement ferrous gluconate 325 MG tablet 324 mg PO BID Patient Comments: Iron supplement calcium-vitamin D3-vitamin K [Citracal-D3 Soft Chew] 1 EACH tablet,chewable 500 mg PO DAILY allopurinol 100 mg tablet 200 mg PO DAILY ascorbic acid (vitamin C) 1,000 mg capsule 1 g PO DAILY biotin 10,000 mcg capsule 10,000 mcg PO DAILY brimonidine 0.2 % drops 1 drp EACH EYE BID Rx Instructions: administer approximately 8 hours apart carvedilol 12.5 mg tablet 12.5 mg PO Q12H cetirizine 10 mg tablet 10 mg PO DAILY cyanocobalamin (vitamin B-12) 1,000 mcg capsule 1,000 mcg PO DAILY dicyclomine 20 mg tablet 20 mg PO Q6H ezetimibe 10 mg tablet 10 mg PO DAILY isosorbide mononitrate 120 mg tablet extended release 24 hr 120 mg PO DAILY hydralazine 100 mg tablet 100 mg PO TID folic acid 1 mg tablet 1 mg PO DAILY latanoprost 0.005 % drops 1 drp ophthalmic (eye) QHS magnesium 250 mg tablet 250 mg PO DAILY multivitamin [Daily Value] Tablet 1 tab PO DAILY Ozempic 0.25 mg or 0.5 mg (2 mg/3 mL) pen injector 0.25 mg subcut QWEEK Rx Instructions: for 4 weeks prednisone 2.5 mg tablet 2.5 mg PO DAILY Rx Instructions: TAKE WITH 5MG FOR TOTAL DAILY DOSE OF 7.5MG pantoprazole 40 mg tablet,delayed release (DR/EC) 40 mg PO BID furosemide 20 mg tablet 20 mg PO BID hydroxychloroquine 200 mg tablet 200 mg PO BID valsartan 160 mg tablet 320 mg PO DAILY omega-3 acid ethyl esters 1 gram capsule 2 cap PO BID insulin degludec [[employer] FlexTouch U-100] 100 unit/mL (3 mL) insulin pen 15 unit subcut QHS Discontinued pregabalin [Lyrica] 100 MG capsule 100 mg PO QHS Patient Comments: Neuropathy dapagliflozin propanediol [Farxiga] 10 mg tablet 10 mg PO DAILY potassium 99 mg tablet 99 mg PO DAILY cefdinir 300 mg capsule 300 mg PO BID Qty: 10 0RF No Action omega-3 fatty acids-fish oil [Fish Oil] 1 EACH capsule 1 ea PO TID Patient Comments: Heart health Referrals / Follow Up: JEFFY ROTHMAN [Other] - Within 2 Weeks Michael Morales MD [Med Staff - Consulting] - See Referral Note (Call office to make an appointment for next week, let them know you were seen as a patient in the hospital) Disposition Disposition (needs filled in before D/C Order can be placed): Home, Self Care
--- NOTE | 2025-02-03 12:12 | DS.PCM_ITS ---
Providers Date of Admission: 02/01/25 Date of Discharge: 02/03/25 Primary Care Physician: JEFFY ROTHMAN Consultations 02/02/25 08:53 Consult: Nephrology Routine Consulting Provider: Judie Camp Reason for Consult: hyponatremia EMERGENT Consult: No MD Notified: Yes Date Notified: 02/02/25 Time Notified: 08:53 Method of Notification: Verbal Reason For Visit: HYPONATREMIA Diagnosis Discharge Diagnosis (1) CKD (chronic kidney disease) stage 4, GFR 15-29 ml/min: Status: Inactive Code(s): N18.4 - Chronic kidney disease, stage 4 (severe) (2) Hyponatremia: Status: Inactive Code(s): E87.1 - Hypo-osmolality and hyponatremia Plan 1. Hyponatremia-secondary to excessive water drinking, patient is on a fluid restriction currently, she is being seen by nephrology, BMP will be monitored #2 acute kidney injury on a backdrop of chronic kidney disease stage IV-BMP will be monitored, nephrology is participating in her care #3 metabolic encephalopathy-this appears to be resolved at this time, possibly secondary to hyponatremia #4 type 2 diabetes-fingerstick blood sugars will be monitored, sliding scale insulin will be administered as needed #5 elevated troponin-I do not think this is significant Medications at Discharge Home Medications amlodipine 10 mg tablet 10 mg PO DAILY 05/28/14 pramipexole 0.25 mg tablet 0.25 mg PO BID 05/28/14 prednisone 5 mg tablet 5 mg PO DAILY 05/28/14 aspirin 81 mg chewable tablet 81 mg PO DAILY@0800 05/29/14 calcium 500 mg-vitamin D3 1,000 unit-vitamin K 40 mcg chewable tablet (Citracal- D3 Soft Chew) 500 mg PO DAILY 05/29/14 ergocalciferol (vitamin D2) 1,250 mcg (50,000 unit) capsule (Vitamin D2) 5,000 unit PO BID 05/29/14 ferrous gluconate 324 mg (37.5 mg iron) tablet 324 mg PO BID 05/29/14 omega-3 fatty acids-fish oil 340 mg-1,000 mg capsule (Fish Oil) 1 ea PO TID 05/29/14 allopurinol 100 mg tablet 200 mg PO DAILY 01/25/25 ascorbic acid (vitamin C) 1,000 mg capsule 1 g PO DAILY 01/25/25 biotin 10,000 mcg capsule 10,000 mcg PO DAILY 01/25/25 brimonidine 0.2 % eye drops 1 drp EACH EYE BID 01/25/25 carvedilol 12.5 mg tablet 12.5 mg PO Q12H 01/25/25 cetirizine 10 mg tablet 10 mg PO DAILY 01/25/25 cyanocobalamin (vitamin B-12) 1,000 mcg capsule 1,000 mcg PO DAILY 01/25/25 dicyclomine 20 mg tablet 20 mg PO Q6H 01/25/25 ezetimibe 10 mg tablet 10 mg PO DAILY 01/25/25 folic acid 1 mg tablet 1 mg PO DAILY 01/25/25 furosemide 20 mg tablet 20 mg PO BID 01/25/25 hydralazine 100 mg tablet 100 mg PO TID 01/25/25 hydroxychloroquine 200 mg tablet 200 mg PO BID 01/25/25 insulin degludec 100 unit/mL (3 mL) subcutaneous pen (Tresiba FlexTouch U-100 insulin) 15 unit subcut QHS 01/25/25 isosorbide mononitrate 120 mg tablet,extended release 24 hr 120 mg PO DAILY 01/25/25 latanoprost 0.005 % eye drops 1 drp ophthalmic (eye) QHS 01/25/25 magnesium 250 mg tablet 250 mg PO DAILY 01/25/25 multivitamin (Daily Value tablet) 1 tab PO DAILY 01/25/25 omega-3 acid ethyl esters 1 gram capsule 2 cap PO BID 01/25/25 pantoprazole 40 mg tablet,delayed release 40 mg PO BID 01/25/25 prednisone 2.5 mg tablet 2.5 mg PO DAILY 01/25/25 semaglutide 0.25 mg or 0.5 mg (2 mg/3 mL) subcutaneous pen injector (Ozempic) 0.25 mg subcut QWEEK 01/25/25 valsartan 160 mg tablet 320 mg PO DAILY 01/25/25 Hospital Course Operations None Procedures None Summary of Care Provided Minutes Spent on Discharge: 31 Hospital Course: Patient was seen in the emergency room [facility] due to worsening confusion at home. Patient had been recently discharged on January 28, 2025 from [facility]-at that time she had RICHARD. states patient had been drinking large amounts of water on a daily basis at home. Workup in the emergency room included chemistry panel which showed a sodium of 124, patient was admitted to PCU and normal saline was continued and she was seen in consultation by nephrology. Patient was put on a fluid restriction. Patient's sodium improved during her hospitalization and her mental status also returned to baseline. On 02/03/2025, patient was seen and examined: On examination she appeared in good health and spirits, she does not appear to be in any distress. Vital signs as documented. Skin warm and dry and without overt rashes. Neck without JVD, thyroid appears normal, trachea is midline, neck is supple. Lungs clear, normal air movement was noted. Heart exam notable for regular rhythm, normal sounds and absence of murmurs, rubs or gallops. Abdomen unremarkable and without evidence of organomegaly, masses, or abdominal aortic enlargement, bowel sounds are present in all 4 quadrants, no abdominal tenderness was noted. Extremities nonedematous, no cyanosis was noted, no clubbing was noted. Neuro: Cranial nerves II through XII are grossly intact, no focal motor deficits were noted, sensation to light touch and pinprick is intact, motor exam 5/5 throughout. Psych: Patient is alert and oriented x3, she does not appear anxious or depressed, she does not appear agitated. On that date, patient appeared stable for discharge home. Weight / BMI Weight Weight: 89.811 kg Body Mass Index (BMI) 35.0 ABG / Lab / Microbiology Data 02/03/25 05:42 02/03/25 05:42 Laboratory: Laboratory Results - last 24 hr 02/02/25 16:42: POC Glucose 155 H 02/02/25 21:30: POC Glucose 139 H 02/03/25 05:42: Hgb 8.3 L, Hct 25.6 L, Sodium 128 L, Potassium 4.3, Chloride 92 L, Carbon Dioxide 22.8, Anion Gap 13, BUN 55 H, Creatinine 2.85 H, Estim Creat Clear Calc 19.81 L, Est GFR (MDRD) Non-Af 17 L, BUN/Creatinine Ratio 19.3, Glucose 96, Calcium 9.0, Iron 41 L, TIBC 228 L, Iron Saturation 18.0, U nsaturated IBC 187 L 02/03/25 06:16: POC Glucose 107 H 02/03/25 11:23: POC Glucose 148 H Microbiology: Microbiology 02/01/25 14:30 Mucosa - Nasopharyngeal SARS-CoV-2, Influenza & RSV (PCR) - Final D/C Instructions Weight Bearing Status: Full weight bearing DC O2, CPAP, BIPAP Needs Home O2 Discharge instructions: No Meaningful Use Info Meaningful Use Meaningful Use Diagnoses (Choose all that apply): None applicable Discharge Plan Admission Admit Date/Time: 02/01/25 15:04 Primary Reason for Your Visit: Hyponatremia Attending Provider: Renato Vinson Primary Care Provider: JEFFY ROTHMAN Consulting Providers: Sukumar Law; Judie Camp Discharge Orders/Prescriptions Prescriptions: Continued prednisone 5 MG tablet 5 mg PO DAILY Patient Comments: Rheumatoid arthritis Rx Instructions: TAKE WITH 2.5MG FOR TOTAL DAILY DOSE OF 7.5MG amlodipine 10 MG tablet 10 mg PO DAILY Patient Comments: Blood pressure pramipexole 0.25 MG tablet 0.25 mg PO BID Patient Comments: Restless legs aspirin 81 MG tablet,chewable 81 mg PO DAILY@0800 Patient Comments: Heart health ergocalciferol (vitamin D2) [Vitamin D2] 50,000 UNIT capsule 5,000 unit PO BID Patient Comments: Supplement ferrous gluconate 325 MG tablet 324 mg PO BID Patient Comments: Iron supplement calcium-vitamin D3-vitamin K [Citracal-D3 Soft Chew] 1 EACH tablet,chewable 500 mg PO DAILY allopurinol 100 mg tablet 200 mg PO DAILY ascorbic acid (vitamin C) 1,000 mg capsule 1 g PO DAILY biotin 10,000 mcg capsule 10,000 mcg PO DAILY brimonidine 0.2 % drops 1 drp EACH EYE BID Rx Instructions: administer approximately 8 hours apart carvedilol 12.5 mg tablet 12.5 mg PO Q12H cetirizine 10 mg tablet 10 mg PO DAILY cyanocobalamin (vitamin B-12) 1,000 mcg capsule 1,000 mcg PO DAILY dicyclomine 20 mg tablet 20 mg PO Q6H ezetimibe 10 mg tablet 10 mg PO DAILY isosorbide mononitrate 120 mg tablet extended release 24 hr 120 mg PO DAILY hydralazine 100 mg tablet 100 mg PO TID folic acid 1 mg tablet 1 mg PO DAILY latanoprost 0.005 % drops 1 drp ophthalmic (eye) QHS magnesium 250 mg tablet 250 mg PO DAILY multivitamin [Daily Value] Tablet 1 tab PO DAILY Ozempic 0.25 mg or 0.5 mg (2 mg/3 mL) pen injector 0.25 mg subcut QWEEK Rx Instructions: for 4 weeks prednisone 2.5 mg tablet 2.5 mg PO DAILY Rx Instructions: TAKE WITH 5MG FOR TOTAL DAILY DOSE OF 7.5MG pantoprazole 40 mg tablet,delayed release (DR/EC) 40 mg PO BID furosemide 20 mg tablet 20 mg PO BID hydroxychloroquine 200 mg tablet 200 mg PO BID valsartan 160 mg tablet 320 mg PO DAILY omega-3 acid ethyl esters 1 gram capsule 2 cap PO BID insulin degludec [Tresiba FlexTouch U-100] 100 unit/mL (3 mL) insulin pen 15 unit subcut QHS Discontinued pregabalin [Lyrica] 100 MG capsule 100 mg PO QHS Patient Comments: Neuropathy dapagliflozin propanediol [Farxiga] 10 mg tablet 10 mg PO DAILY potassium 99 mg tablet 99 mg PO DAILY cefdinir 300 mg capsule 300 mg PO BID Qty: 10 0RF No Action omega-3 fatty acids-fish oil [Fish Oil] 1 EACH capsule 1 ea PO TID Patient Comments: Heart health Referrals / Follow Up: JEFFY ROTHMAN [Other] - 02/22/25 9:30 am Michael Morales MD [Med Staff - Consulting] - See Referral Note (Call office to make an appointment for next week, let them know you were seen as a patient in the hospital) Disposition Disposition (needs filled in before D/C Order can be placed): Home, Self Care Charges/Coding Visit Charges Inpatient E&M: 65863 Disch Hosp >30min
[2025-02-03 13:03] VITALS: BP 142/54; PULSE 62; RESP 14; TEMP 36.7; O2SAT 100
--- NOTE | 2025-02-03 14:04 | PHA.DC_ITS ---
Pharmacy [place] [facility]con[facility] Service has performed discharge medication reconciliation for this patient. The patient's discharge medication list was reviewed for discrepancies and discrepancies were resolved. Medications at Discharge Home Medications amlodipine 10 mg tablet 10 mg PO DAILY 05/28/14 pramipexole 0.25 mg tablet 0.25 mg PO BID 05/28/14 prednisone 5 mg tablet 5 mg PO DAILY 05/28/14 aspirin 81 mg chewable tablet 81 mg PO DAILY@0800 05/29/14 calcium 500 mg-vitamin D3 1,000 unit-vitamin K 40 mcg chewable tablet (Citracal- D3 Soft Chew) 500 mg PO DAILY 05/29/14 ergocalciferol (vitamin D2) 1,250 mcg (50,000 unit) capsule (Vitamin D2) 5,000 unit PO BID 05/29/14 ferrous gluconate 324 mg (37.5 mg iron) tablet 324 mg PO BID 05/29/14 omega-3 fatty acids-fish oil 340 mg-1,000 mg capsule (Fish Oil) 1 ea PO TID 05/29/14 allopurinol 100 mg tablet 200 mg PO DAILY 01/25/25 ascorbic acid (vitamin C) 1,000 mg capsule 1 g PO DAILY 01/25/25 biotin 10,000 mcg capsule 10,000 mcg PO DAILY 01/25/25 brimonidine 0.2 % eye drops 1 drp EACH EYE BID 01/25/25 carvedilol 12.5 mg tablet 12.5 mg PO Q12H 01/25/25 cetirizine 10 mg tablet 10 mg PO DAILY 01/25/25 cyanocobalamin (vitamin B-12) 1,000 mcg capsule 1,000 mcg PO DAILY 01/25/25 dicyclomine 20 mg tablet 20 mg PO Q6H 01/25/25 ezetimibe 10 mg tablet 10 mg PO DAILY 01/25/25 folic acid 1 mg tablet 1 mg PO DAILY 01/25/25 furosemide 20 mg tablet 20 mg PO BID 01/25/25 hydralazine 100 mg tablet 100 mg PO TID 01/25/25 hydroxychloroquine 200 mg tablet 200 mg PO BID 01/25/25 insulin degludec 100 unit/mL (3 mL) subcutaneous pen (Tresiba FlexTouch U-100 insulin) 15 unit subcut QHS 01/25/25 isosorbide mononitrate 120 mg tablet,extended release 24 hr 120 mg PO DAILY 01/25/25 latanoprost 0.005 % eye drops 1 drp ophthalmic (eye) QHS 01/25/25 magnesium 250 mg tablet 250 mg PO DAILY 01/25/25 multivitamin (Daily Value tablet) 1 tab PO DAILY 01/25/25 omega-3 acid ethyl esters 1 gram capsule 2 cap PO BID 01/25/25 pantoprazole 40 mg tablet,delayed release 40 mg PO BID 01/25/25 prednisone 2.5 mg tablet 2.5 mg PO DAILY 01/25/25 semaglutide 0.25 mg or 0.5 mg (2 mg/3 mL) subcutaneous pen injector (Ozempic) 0.25 mg subcut QWEEK 01/25/25 valsartan 160 mg tablet 320 mg PO DAILY 01/25/25
== END 2025-02-03 13:24 | disposition home or self-care (01) | DRG 640 ==
LOC: ED 15:22 → PCU 15:32
PROVIDERS: Nurse Practitioner Adult Health; Emergency Provider Student in an Organized Health Care Education/Training Program; Referring Provider Student in an Organized Health Care Education/Training Program; Visit Provider Internal Medicine
DX: E87.1 Hypo-osmolality and hyponatremia (principal); G93.41 Metabolic encephalopathy; N18.4 Chronic kidney disease, stage 4 (severe); N17.9 Acute kidney failure, unspecified; E11.22 Type 2 diabetes mellitus with diabetic chronic kidney disease; M06.9 Rheumatoid arthritis, unspecified; I12.9 Hypertensive chronic kidney disease with stage 1 through stage 4 chronic kidney disease, or unspecified chronic kidney disease; E78.5 Hyperlipidemia, unspecified; Z79.4 Long term (current) use of insulin; M79.7 Fibromyalgia; Z79.52 Long term (current) use of systemic steroids; Z79.82 Long term (current) use of aspirin; Z79.85 Long-term (current) use of injectable non-insulin antidiabetic drugs; Z79.899 Other long term (current) drug therapy; Z87.891 Personal history of nicotine dependence
CPT/HCPCS: 36415; 70450; 71046; 80048; 80053; 80307; 81001; 82077; 82533; 82962; 83540; 83550; 83605; 83930; 84443; 84484; 85014; 85018; 85025; 87631; 93005; 97162; 97166; 99284; A4216